=== PATIENT | male | born 1970 | race Caucasian/White ===

== ENCOUNTER → 2019-09-08 10:04 | Outpatient (BNVA) | payer MEDICARE, SELFPAY | PROVIDERS: Family Provider Internal Medicine; PCP Internal Medicine; Visit Provider Nurse Practitioner | DX: F33.1 Major depressive disorder, recurrent, moderate (principal); F41.1 Generalized anxiety disorder | CPT/HCPCS: 99213 ==

== ENCOUNTER → 2019-10-26 11:10 | Outpatient (BNVA) | payer MEDICARE, SELFPAY | PROVIDERS: Family Provider Internal Medicine; PCP Internal Medicine; Visit Provider Nurse Practitioner | DX: F41.1 Generalized anxiety disorder (principal); F33.1 Major depressive disorder, recurrent, moderate | CPT/HCPCS: 99214 ==

== ENCOUNTER 2019-11-09 13:32 | Outpatient (CLI) | payer MEDICARE, SELFPAY ==
[2019-11-09 14:14] LABS: Basophils # 0.1 10^3/uL (0.0-0.1); Basophils % 0.9 %; Eosinophils # 0.1 10^3/uL (0.0-0.8); Eosinophils % 1.8 %; Hematocrit 48.2 % (42.0-52.0); Hemoglobin 14.8 g/dL (11.7-16.6); Lymphocytes % 15.6 %; Mean Corpuscular HGB Conc 30.7 g/dL (30.0-36.0); Mean Corpuscular Hemoglobin 27.7 pg (28.0-34.0); Mean Corpuscular Volume 90.3 fL (80-94); Mean Platelet Volume 10.4 fL (7.4-10.4); Monocytes # 0.6 10^3/uL (0.2-0.9); Monocytes % 8.7 %; Neutrophils # 4.8 10^3/uL (1.8-7.7); Neutrophils % 72.4 %; Nucleated Red Blood Cells % 0 %; Platelet Count 537 10^3/cmm (130-400); Red Blood Count 5.34 10^6/uL (4.1-5.3); Red Cell Distribution Width 17.1 % (12.1-15.1); White Blood Count 6.7 10^3/uL (4.0-10.0)
--- NOTE | 2019-11-09 15:32 | ONC FU_ITS ---
Dr. Krause follow up note Patient: Bijan Eagle Unit #: [id number]: 1970 Dicatated By: Clif Krause M.D.Date of Visit:Nov 09, 2019 Onc Med Follow-up/Prog Note History of Present Illness: This is a 49 year old man with an extensive history of intractable chronic lower back pain, requiring multiple surgery including thoracic spinal cord stimulator implantation and laminectomy on 10/09/14 for spinal stenosis. The patient has chronic long-term opiate use. He also has a history of testosterone deficiency in the 2010. The patient suffers from depression. On routine laboratory analysis from 04/2415 his laboratory analysis revealed platelets of 654,000, and a repeat one week later on 05/09/15 increased to 717,000. He had adequate WBC and hemoglobin levels. His TSH measured 0.48 testosterone 218. The patient was first seen on 06/07/2015. Repeat laboratory analysis remained elevated platelets at 649. Further workup failed to find any evidence of reactive thrombocytosis. LDH 152, ESR 4, ferritin 16, but iron saturation 32%. He denied history of smoking. He had mild splenomegaly by CT imaging in June 2015. He denies history of bleeding, except prolonged bleeding with extensive mandibular surgery. He has uncomplicated molar tooth removal later on. He has no recent bleeding. No history of thrombosis. Bone marrow biopsy in June 2015 revealed hypercellular bone marrow at 90-100% cellularity, with significant megakaryocyte hyperplasia but also with significant dyspoiesis. About 5% of red cell precursors had dyspoiesis as well. Granulocytes were mature and normal in numbers. Flow cytometry and FISH panel for MDS unrevealing. Conventional cytogenetics unrevealing. Reticulin stain not increased. Absent iron storage was noted. Repeat iron studies with iron saturation 12%, ferritin 19. Further clonal analysis with BCR ABL, ej 2, ej 2 exon 12, MPL were completely unrevealing. Overlap of MDS/MPD was suspected. He began on oral iron supplementation, but despite of normalized iron panel, he had not developed erythrocytosis. Pure MPD with polycythemia rubra vera or essential thrombocythemia was felt to be unlikely.On hydroxyurea 500 mg 5 days a week Increased to 500 mg by mouth daily on 11/09/2019 And still taking testosterone supplements 1 mL every 3 weeks as per his PMDs recommendation Came for follow-up, denies any specific complaints, no fever or chills no nausea or vomiting no diarrhea constipation tolerating hydroxyurea 5 days a week well and still on testosterone supplements, managed by PMD Denies any headaches, blurred vision or double vision, Medications: Aspirin 1 (81 mg) Tablet, enteric coated Oral daily, BuPROPion HCl ER (XL) 1 (450 mg) Tablet SR 24 HR Oral daily, Furosemide 1 (40 mg) Tablet Oral daily, Hydrocodone-Acetaminophen 1 Tablet (of 10-325 mg) Oral four times a day PRN, Hydroxyurea 1 Tablet (of 500 mg) Oral daily, Lyrica 2 Capsule (of 200 mg) Oral b.i.d., Methadone HCl 2 Tablet (of 10 mg) Oral t.i.d., MiraLax Powder Oral PRN, Omeprazole 1 (20 mg) Capsule Delayed Release Oral daily, PARoxetine HCl 1 Tablet (of 20 mg) Oral daily, Potassium Chloride ER 1 (20 meq) Tablet, controlled release Oral daily, SEROquel 1 Tablet (of 50 mg) Oral daily, Zolpidem Tartrate 1 Tablet (of 10 mg) Oral at bedtime Allergies: Citalopram Hydrobromide and Sertraline HCl. Review of Systems: Constitutional - Appetite is good and weight is stable. No fever, chills, hot flashes, or night sweats. Energy level is good, ENMT - No sinus congestion/drainage. No mouth sores. No sore throat or difficulty swallowing, Hematologic/Lymphatic - No abnormal bruising or bleeding, Respiratory - Occasional shortness of breath. No cough. No pleuritic pain or hemoptysis, Cardiovascular - No angina pain. No palpitations, Gastrointestinal - No nausea or vomiting. No heartburn or acid reflux. No diarrhea or constipation. No blood in the stool or black stools, Genitourinary (M) - No dysuria or hematuria. No urinary frequency. No urgency or incontinence, Musculoskeletal - No joint or bone pain, Neurologic - No headache or dizziness. No numbness/paresthesias or other focal neurologic symptoms, Psychiatric - No anxiety or depression. No insomnia. Vital Signs: Performed on Nov 09, 2019 14:57 Height - 70.00 in Weight - 213.6 lbs (LOW) BSA - 2.15 sq.m BMI - 30.65 (HIGH) Temperature - 98.6 F Pulse - 93 /min Respiration - 16 /min BP - 154/101 mm(hg) (HIGH) O2 Sat - 97 % Pain - 6 Performance Status: 0 - Fully active, able to carry on all predisease activities without restrictions. (ECOG) Physical Examination: ENMT - No oral exudates, ulcers, masses, thrush or mucositis. Oropharynx clear. Tongue normal, Hematologic/Lymphatic - No petechiae or purpura. No tender or palpable lymph nodes in the cervical, supraclavicular, axillary or inguinal area, Respiratory - Lungs are clear to auscultation without rhonchi or wheezing, Cardiovascular - Regular rate and rhythm of heart, Abdomen - Non-tender, non-distended, Good bowel sounds. No guarding or rebound tenderness. No pulsatile masses, Extremities - no edema. Lab/Imaging: Test performed on Aug 17, 2019 14:36 WBC 6.5 10 3/uL RBC 5.14 10 6/uL HGB 14.5 g/dL HCT 46.1 % MCV 89.7 fl MCH 28.2 pg MCHC 31.5 g/dl RDW 17.2 % Platelet Count 535 10 3/cmm MPV 10.0 fl Neutrophils 4.8 10 3/uL Lymphocytes 1.0 10 3/uL Monocytes 0.6 10 3/uL Eosinophils 0.1 10 3/uL Basophils 0.0 10 3/uL Neutrophil % 73.8 % Lymphocyte % 15.6 % Monocyte % 8.4 % Eosinophil % 1.2 % Basophils % 0.5 % Impression: This is a 49 year old man was found to have persistent thrombocytosis and mild splenomegaly. 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 Essential thrombocythemia is not likely, because of present dyspoiesis. Polycythemia rubra was felt to be unlikely because he had no erythrocytosis despite of correction of iron deficiency. The patient has no history of thrombosis or bleeding. He has underlying testosterone deficiency, depression, severe chronic lower back pain requiring spinal cord stimulator implantation and back surgeries. .Polycythemia probably due to testosterone supplement, or underlying MPD , workup done in the past for myeloproliferative disorder because of thrombocytosis was inconclusive Bone marrow done on 07/16/2017 showed 100% cellularity with significant megakaryocyte proliferation and dyspoiesis. RBC precursors with some dyspoiesis noted including bi nucleated precursors and some nuclear/cytoplasmic dyssynchrony. No abnormal increase in blast cells. Flow cytometry showed no monocytic B-cell or aberrant T-cell population detected. Bone marrow fish for MDS no MDS related abnormality noted Bone marrow fish CML panel BCR/ABL fusion not detected Bone marrow chromosomal analysis no abnormality seen Started on hydroxyurea 500 mg daily on 10/29/2017 for progressive thrombocytosis and persistent polycythemia.Good response to the treatment, hydroxyurea dose changed to 500 mg/ d by mouth 5 days / week on 11/16/2017, increased to 500 mg by mouth daily on 11/09/2019 Plan: Discussed with patient regarding his labs white blood count 6.7 hemoglobin 14.8 crit 48.2 platelets 537,000, Clinically, patient is doing well, tolerating hydroxyurea 500 mg daily 5 days a week well. His follow-up lab shows persistent mild thrombocytosis and polycythemia while white blood count is within normal range. At this point we will increase his hydroxyurea dose to 500 mg by mouth daily and return to clinic in one month with CBC, goal is to maintain hemoglobin/hematocrit around 45 and platelet counts below 400,000 while keeping white blood count in the normal range.. Signed By: Clif Krause M.D. <<Signature on File>>
== END 2019-11-09 13:33 | disposition home or self-care (01) ==
LOC: ONCMED 13:32
PROVIDERS: Family Provider Internal Medicine; PCP Internal Medicine; Visit Provider Internal Medicine Hematology & Oncology
DX: D75.1 Secondary polycythemia (principal); D47.3 Essential (hemorrhagic) thrombocythemia; G89.29 Other chronic pain; M54.5 Low back pain; R16.1 Splenomegaly, not elsewhere classified; F32.9 Major depressive disorder, single episode, unspecified; Z79.891 Long term (current) use of opiate analgesic; Z79.82 Long term (current) use of aspirin; Z79.899 Other long term (current) drug therapy; Z96.82 Presence of neurostimulator
CPT/HCPCS: 85025; 99214

== ENCOUNTER → 2019-11-16 09:24 | Outpatient (BNVA) | payer MEDICARE, SELFPAY | PROVIDERS: Family Provider Internal Medicine; PCP Internal Medicine; Visit Provider Nurse Practitioner | DX: M54.9 Dorsalgia, unspecified (principal); G47.00 Insomnia, unspecified; Z79.891 Long term (current) use of opiate analgesic | CPT/HCPCS: 99213 ==

== ENCOUNTER → 2019-11-28 11:12 | Outpatient (BNVA) | payer MEDICARE, SELFPAY | PROVIDERS: Family Provider Internal Medicine; PCP Internal Medicine; Visit Provider Nurse Practitioner | DX: F41.1 Generalized anxiety disorder (principal); F33.1 Major depressive disorder, recurrent, moderate | CPT/HCPCS: 99213 ==

== ENCOUNTER 2019-12-09 10:10 | Outpatient (CLI) | payer MEDICARE, SELFPAY ==
[2019-12-09 12:16] LABS: Basophils % 0.7 %; Eosinophils # 0.1 10^3/uL (0.0-0.8); Hematocrit 48.2 % (42.0-52.0); Hemoglobin 14.9 g/dL (11.7-16.6); Lymphocytes % 17.6 %; Mean Corpuscular HGB Conc 30.9 g/dL (30.0-36.0); Mean Corpuscular Hemoglobin 29.1 pg (28.0-34.0); Mean Corpuscular Volume 94.1 fL (80-94); Mean Platelet Volume 10.7 fL (7.4-10.4); Monocytes # 0.5 10^3/uL (0.2-0.9); Monocytes % 8.2 %; Neutrophils # 3.9 10^3/uL (1.8-7.7); Neutrophils % 71.1 %; Nucleated Red Blood Cells % 0 %; Platelet Count 472 10^3/cmm (130-400); Red Blood Count 5.12 10^6/uL (4.1-5.3); Red Cell Distribution Width 18.4 % (12.1-15.1); White Blood Count 5.5 10^3/uL (4.0-10.0)
== END 2019-12-09 10:11 | disposition home or self-care (01) ==
LOC: ONCMED 12:50
PROVIDERS: Family Provider Internal Medicine; PCP Internal Medicine; Visit Provider Internal Medicine Hematology & Oncology
DX: D47.3 Essential (hemorrhagic) thrombocythemia (principal)
CPT/HCPCS: 85025

== ENCOUNTER 2019-12-27 08:53 | Outpatient (RCR) | payer MEDICARE, SELFPAY ==
[2019-12-23 11:35] LABS: Basophils % 0.6 %; Eosinophils # 0.1 10^3/uL (0.0-0.8); Eosinophils % 2.6 %; Hematocrit 45.9 % (42.0-52.0); Hemoglobin 14.1 g/dL (11.7-16.6); Lymphocytes # 1.2 10^3/uL (0.8-4.8); Lymphocytes % 24.7 %; Mean Corpuscular HGB Conc 30.7 g/dL (30.0-36.0); Mean Corpuscular Hemoglobin 29.7 pg (28.0-34.0); Mean Corpuscular Volume 96.6 fL (80-94); Mean Platelet Volume 10.6 fL (7.4-10.4); Monocytes # 0.3 10^3/uL (0.2-0.9); Monocytes % 6.9 %; Neutrophils % 64.8 %; Nucleated Red Blood Cells % 0 %; Platelet Count 448 10^3/cmm (130-400); Red Blood Count 4.75 10^6/uL (4.1-5.3); Red Cell Distribution Width 18.9 % (12.1-15.1); White Blood Count 4.7 10^3/uL (4.0-10.0)
--- NOTE | 2019-12-26 17:27 | ONC FU_ITS ---
Dr. Krause follow up note Patient: Bijan Eagle Unit #: [id number]: [id number] Dicatated By: Clif Krause M.D.Date of Visit:Dec 26, 2019 Telehealth Progress Note The patient has been informed that the visit may not be secure and acknowledged the information. I have explained the option of participating in a telephone or video visit during the [facility]-[address] [place] [address] emergency to the patient. After being given an opportunity to ask questions about and discuss this type of visit, the patient verbally consented to proceeding with the telephone/video visit. the patient understands that this service replaces an office visit and they may be billed and /or responsible for any applicable copayments History of Present Illness: This is a 49 year old man with an extensive history of intractable chronic lower back pain, requiring multiple surgery including thoracic spinal cord stimulator implantation and laminectomy on 10/09/14 for spinal stenosis. The patient has chronic long-term opiate use. He also has a history of testosterone deficiency in the 2010. The patient suffers from depression. On routine laboratory analysis from 04/2415 his laboratory analysis revealed platelets of 654,000, and a repeat one week later on 05/09/15 increased to 717,000. He had adequate WBC and hemoglobin levels. His TSH measured 0.48 testosterone 218. The patient was first seen on 06/07/2015. Repeat laboratory analysis remained elevated platelets at 649. Further workup failed to find any evidence of reactive thrombocytosis. LDH 152, ESR 4, ferritin 16, but iron saturation 32%. He denied history of smoking. He had mild splenomegaly by CT imaging in June 2015. He denies history of bleeding, except prolonged bleeding with extensive mandibular surgery. He has uncomplicated molar tooth removal later on. He has no recent bleeding. No history of thrombosis. Bone marrow biopsy in June 2015 revealed hypercellular bone marrow at 90-100% cellularity, with significant megakaryocyte hyperplasia but also with significant dyspoiesis. About 5% of red cell precursors had dyspoiesis as well. Granulocytes were mature and normal in numbers. Flow cytometry and FISH panel for MDS unrevealing. Conventional cytogenetics unrevealing. Reticulin stain not increased. Absent iron storage was noted. Repeat iron studies with iron saturation 12%, ferritin 19. Further clonal analysis with BCR ABL, ej 2, ej 2 exon 12, MPL were completely unrevealing. Overlap of MDS/MPD was suspected. He began on oral iron supplementation, but despite of normalized iron panel, he had not developed erythrocytosis. Pure MPD with polycythemia rubra vera or essential thrombocythemia was felt to be unlikely.On hydroxyurea 500 mg 5 days a week Increased to 500 mg by mouth daily on 11/09/2019 And still taking testosterone supplements 1 mL every 3 weeks as per his PMDs recommendation Evaluated via telemedicine, Patient denies any specific complaints, no fever or chills, no nausea or vomiting, no headaches or blurred vision or double vision, tolerating phlebotomy well and also hydroxyurea. Medications: Aspirin 1 (81 mg) Tablet, enteric coated Oral daily, BuPROPion HCl ER (XL) 1 (450 mg) Tablet SR 24 HR Oral daily, Furosemide 1 (40 mg) Tablet Oral daily, Hydrocodone-Acetaminophen 1 Tablet (of 10-325 mg) Oral four times a day PRN, Hydroxyurea 1 Tablet (of 500 mg) Oral daily, Lyrica 2 Capsule (of 200 mg) Oral b.i.d., Methadone HCl 2 Tablet (of 10 mg) Oral t.i.d., MiraLax Powder Oral PRN, Omeprazole 1 (20 mg) Capsule Delayed Release Oral daily, PARoxetine HCl 1 Tablet (of 20 mg) Oral daily, Potassium Chloride ER 1 (20 meq) Tablet, controlled release Oral daily, SEROquel 1 Tablet (of 50 mg) Oral daily, Zolpidem Tartrate 1 Tablet (of 10 mg) Oral at bedtime Allergies: Citalopram Hydrobromide and Sertraline HCl. Review of Systems: Review of Systems is not available for this patient. Vital Signs: Vitals are not available for this patient. Performance Status: 0 - Fully active, able to carry on all predisease activities without restrictions. (ECOG) Physical Examination: ENMT - denies mouth sores, Respiratory - denies shortness of breath or wheezing, Cardiovascular - denies palpitation or tachycardia, Abdomen - denies abdominal pain or fullness, Extremities - denies lower extremity edema or rash. Lab/Imaging: Test performed on Dec 09, 2019 10:10 WBC 5.5 10 3/uL RBC 5.12 10 6/uL HGB 14.9 g/dL HCT 48.2 % MCV 94.1 fL MCH 29.1 pg MCHC 30.9 g/dL RDW 18.4 % Platelet Count 472 10 3/cmm MPV 10.7 fL Neutrophils 3.9 10 3/uL Lymphocytes 1.0 10 3/uL Monocytes 0.5 10 3/uL Eosinophils 0.1 10 3/uL Basophils 0.0 10 3/uL Neutrophil % 71.1 % Lymphocyte % 17.6 % Monocyte % 8.2 % Eosinophil % 2.0 % Basophils % 0.7 % Impression: This is a 49 year old man was found to have persistent thrombocytosis and mild splenomegaly. 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 Essential thrombocythemia is not likely, because of present dyspoiesis. Polycythemia rubra was felt to be unlikely because he had no erythrocytosis despite of correction of iron deficiency. The patient has no history of thrombosis or bleeding. He has underlying testosterone deficiency, depression, severe chronic lower back pain requiring spinal cord stimulator implantation and back surgeries. .Polycythemia probably due to testosterone supplement, or underlying MPD , workup done in the past for myeloproliferative disorder because of thrombocytosis was inconclusive Bone marrow done on 07/16/2017 showed 100% cellularity with significant megakaryocyte proliferation and dyspoiesis. RBC precursors with some dyspoiesis noted including bi nucleated precursors and some nuclear/cytoplasmic dyssynchrony. No abnormal increase in blast cells. Flow cytometry showed no monocytic B-cell or aberrant T-cell population detected. Bone marrow fish for MDS no MDS related abnormality noted Bone marrow fish CML panel BCR/ABL fusion not detected Bone marrow chromosomal analysis no abnormality seen Started on hydroxyurea 500 mg daily on 10/29/2017 for progressive thrombocytosis and persistent polycythemia.Good response to the treatment, hydroxyurea dose changed to 500 mg/ d by mouth 5 days / week on 11/16/2017, increased to 500 mg by mouth daily on 11/09/2019 Plan: Discussed with patient regarding his labs white blood count 4.7 hemoglobin 14.1 crit 45.9 platelets 448,000 Clinically, patient is doing well, tolerating hydroxyurea well and also phlebotomy on as-needed basis. His hematocrit was 45, and today's lab shows 45.9, we'll proceed with phlebotomy in the morning and then check a CBC in one month. In the meantime we'll continue with hydroxyurea 500 mg by mouth daily Signed By: Clif Krause M.D. <<Signature on File>>
[2019-12-27] MEDS: sodium chloride 0.9% 250 ML 999 ML IV (13:50)
== END 2020-01-05 23:59 | disposition home or self-care (01) ==
LOC: ONCMED 08:53
PROVIDERS: Internal Medicine Hematology & Oncology; Family Provider Internal Medicine; PCP Internal Medicine; Visit Provider Internal Medicine Medical Oncology
DX: D45 Polycythemia vera (principal); D47.3 Essential (hemorrhagic) thrombocythemia; D46.9 Myelodysplastic syndrome, unspecified; E61.1 Iron deficiency; E03.9 Hypothyroidism, unspecified
CPT/HCPCS: 36415; 85025; 99195; J7050

== ENCOUNTER → 2020-01-13 08:39 | Outpatient (BNVA) | payer MEDICARE, SELFPAY | PROVIDERS: Family Provider Internal Medicine; PCP Internal Medicine; Visit Provider Nurse Practitioner | DX: M54.5 Low back pain (principal); G47.00 Insomnia, unspecified; Z96.89 Presence of other specified functional implants; Z79.891 Long term (current) use of opiate analgesic | CPT/HCPCS: 99213 ==

== ENCOUNTER 2020-02-01 06:41 | Outpatient (RCR) | payer MEDICARE, SELFPAY ==
[2020-01-31 10:30] LABS: Basophils % 0.7 %; Eosinophils # 0.1 10^3/uL (0.0-0.8); Eosinophils % 1.5 %; Hematocrit 44.1 % (42.0-52.0); Hemoglobin 13.3 g/dL (11.7-16.6); Lymphocytes % 19.2 %; Mean Corpuscular HGB Conc 30.2 g/dL (30.0-36.0); Mean Corpuscular Hemoglobin 28.7 pg (28.0-34.0); Mean Corpuscular Volume 95.2 fL (80-94); Monocytes # 0.5 10^3/uL (0.2-0.9); Monocytes % 9.7 %; Neutrophils # 3.7 10^3/uL (1.8-7.7); Neutrophils % 68.5 %; Nucleated Red Blood Cells % 0.4 %; Platelet Count 517 10^3/cmm (130-400); Red Blood Count 4.63 10^6/uL (4.1-5.3); Red Cell Distribution Width 18.5 % (12.1-15.1); White Blood Count 5.4 10^3/uL (4.0-10.0)
--- NOTE | 2020-02-03 13:50 | ONC FU_ITS ---
Dr. Krause follow up note Patient: Bijan Eagle Unit #: [id number]: 1970 Dicatated By: Clif Krause M.D.Date of Visit:February 01, 2020 Onc Med Follow-up/Prog Note History of Present Illness: This is a 49 year old man with an extensive history of intractable chronic lower back pain, requiring multiple surgery including thoracic spinal cord stimulator implantation and laminectomy on 10/09/14 for spinal stenosis. The patient has chronic long-term opiate use. He also has a history of testosterone deficiency in the 2010. The patient suffers from depression. On routine laboratory analysis from 04/2415 his laboratory analysis revealed platelets of 654,000, and a repeat one week later on 05/09/15 increased to 717,000. He had adequate WBC and hemoglobin levels. His TSH measured 0.48 testosterone 218. The patient was first seen on 06/07/2015. Repeat laboratory analysis remained elevated platelets at 649. Further workup failed to find any evidence of reactive thrombocytosis. LDH 152, ESR 4, ferritin 16, but iron saturation 32%. He denied history of smoking. He had mild splenomegaly by CT imaging in June 2015. He denies history of bleeding, except prolonged bleeding with extensive mandibular surgery. He has uncomplicated molar tooth removal later on. He has no recent bleeding. No history of thrombosis. Bone marrow biopsy in June 2015 revealed hypercellular bone marrow at 90-100% cellularity, with significant megakaryocyte hyperplasia but also with significant dyspoiesis. About 5% of red cell precursors had dyspoiesis as well. Granulocytes were mature and normal in numbers. Flow cytometry and FISH panel for MDS unrevealing. Conventional cytogenetics unrevealing. Reticulin stain not increased. Absent iron storage was noted. Repeat iron studies with iron saturation 12%, ferritin 19. Further clonal analysis with BCR ABL, ej 2, ej 2 exon 12, MPL were completely unrevealing. Overlap of MDS/MPD was suspected. He began on oral iron supplementation, but despite of normalized iron panel, he had not developed erythrocytosis. Pure MPD with polycythemia rubra vera or essential thrombocythemia was felt to be unlikely.On hydroxyurea 500 mg 5 days a week Increased to 500 mg by mouth daily on 11/09/2019 And still taking testosterone supplements 1 mL every 3 weeks as per his PMDs recommendation Came for follow-up, denies any specific complaints, no fever or chills, no nausea or vomiting, no diarrhea constipation, no headaches or blurred vision or double vision, patient still using testosterone supplements. Medications: Aspirin 1 (81 mg) Tablet, enteric coated Oral daily, BuPROPion HCl ER (XL) 1 (450 mg) Tablet SR 24 HR Oral daily, Furosemide 1 (40 mg) Tablet Oral daily, Hydrocodone-Acetaminophen 1 Tablet (of 10-325 mg) Oral four times a day PRN, Hydroxyurea 1 Tablet (of 500 mg) Oral daily, Lyrica 2 Capsule (of 200 mg) Oral b.i.d., Methadone HCl 2 Tablet (of 10 mg) Oral t.i.d., MiraLax Powder Oral PRN, Omeprazole 1 (20 mg) Capsule Delayed Release Oral daily, PARoxetine HCl 1 Tablet (of 20 mg) Oral daily, Potassium Chloride ER 1 (20 meq) Tablet, controlled release Oral daily, SEROquel 1 Tablet (of 50 mg) Oral daily, Zolpidem Tartrate 1 Tablet (of 10 mg) Oral at bedtime Allergies: Citalopram Hydrobromide and Sertraline HCl. Review of Systems: Review of Systems is not available for this patient. Vital Signs: Vitals are not available for this patient. Performance Status: 0 - Fully active, able to carry on all predisease activities without restrictions. (ECOG) Physical Examination: ENMT - no mouth sores, no thrush, no jaundice, Respiratory - Lungs are clear, Cardiovascular - Regular rate and rhythm of heart, Abdomen - bowel sounds present, soft, Extremities - no visible edema or rash. Lab/Imaging: Test performed on Dec 23, 2019 08:00 WBC 4.7 10 3/uL RBC 4.75 10 6/uL HGB 14.1 g/dL HCT 45.9 % MCV 96.6 fL MCH 29.7 pg MCHC 30.7 g/dL RDW 18.9 % Platelet Count 448 10 3/cmm MPV 10.6 fL Neutrophils 3.0 10 3/uL Lymphocytes 1.2 10 3/uL Monocytes 0.3 10 3/uL Eosinophils 0.1 10 3/uL Basophils 0.0 10 3/uL Neutrophil % 64.8 % Lymphocyte % 24.7 % Monocyte % 6.9 % Eosinophil % 2.6 % Basophils % 0.6 % Impression: This is a 49 year old man was found to have persistent thrombocytosis and mild splenomegaly. 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 Essential thrombocythemia is not likely, because of present dyspoiesis. Polycythemia rubra was felt to be unlikely because he had no erythrocytosis despite of correction of iron deficiency. The patient has no history of thrombosis or bleeding. He has underlying testosterone deficiency, depression, severe chronic lower back pain requiring spinal cord stimulator implantation and back surgeries. .Polycythemia probably due to testosterone supplement, or underlying MPD , workup done in the past for myeloproliferative disorder because of thrombocytosis was inconclusive Bone marrow done on 07/16/2017 showed 100% cellularity with significant megakaryocyte proliferation and dyspoiesis. RBC precursors with some dyspoiesis noted including bi nucleated precursors and some nuclear/cytoplasmic dyssynchrony. No abnormal increase in blast cells. Flow cytometry showed no monocytic B-cell or aberrant T-cell population detected. Bone marrow fish for MDS no MDS related abnormality noted Bone marrow fish CML panel BCR/ABL fusion not detected Bone marrow chromosomal analysis no abnormality seen Started on hydroxyurea 500 mg daily on 10/29/2017 for progressive thrombocytosis and persistent polycythemia.Good response to the treatment, hydroxyurea dose changed to 500 mg/ d by mouth 5 days / week on 11/16/2017, increased to 500 mg by mouth daily on 11/09/2019 Plan: Discussed with patient regarding his labs white blood count 5.4 hemoglobin 13.3 crit 44.1 platelets 517,000 Clinically, patient is doing well, now being treated with hydroxyurea, his follow-up lab shows hematocrit in desirable range, will continue with same dose of hydroxyurea her to clinic in one month with CBC Signed By: Clif Krause M.D. <<Signature on File>>
== END 2020-02-05 23:59 | disposition home or self-care (01) ==
LOC: ONCMED 06:41
PROVIDERS: Internal Medicine Medical Oncology; PCP Internal Medicine; Visit Provider Internal Medicine Hematology & Oncology
DX: D47.3 Essential (hemorrhagic) thrombocythemia (principal); D75.1 Secondary polycythemia; D46.9 Myelodysplastic syndrome, unspecified; E29.1 Testicular hypofunction; F32.9 Major depressive disorder, single episode, unspecified; M54.5 Low back pain; Z96.82 Presence of neurostimulator; Z79.899 Other long term (current) drug therapy
CPT/HCPCS: 36415; 85025; 99213; G0463

== ENCOUNTER 2020-02-15 15:29 | Outpatient (CLI) | payer MEDICARE, SELFPAY ==
[2020-02-15 16:28] LABS: Chol HDL Ratio 4.86 mg/dL (1.0-5.00); Cholesterol 141 mg/dL (0-200); HDL Cholesterol 29 mg/dL (60-100); LDL Cholesterol Calculated 84 mg/dL (50-129); Triglycerides 140 mg/dL (0-150)
[2020-02-15 19:20] LABS: Estmated Average Glucose 108; Hemoglobin A1C 5.4 % (4.0-6.0)
== END 2020-02-15 15:30 | disposition home or self-care (01) ==
LOC: LAB 15:34
PROVIDERS: PCP Internal Medicine; Visit Provider Nurse Practitioner
DX: F33.1 Major depressive disorder, recurrent, moderate (principal)
CPT/HCPCS: 80061; 83036

== ENCOUNTER 2020-02-29 06:56 | Outpatient (RCR) | payer MEDICARE, SELFPAY ==
[2020-02-29 09:27] LABS: Basophils % 0.7 %; Eosinophils # 0.1 10^3/uL (0.0-0.8); Eosinophils % 1.4 %; Hematocrit 43.9 % (42.0-52.0); Hemoglobin 13.6 g/dL (11.7-16.6); Lymphocytes # 1.2 10^3/uL (0.8-4.8); Lymphocytes % 19.8 %; Mean Corpuscular Hemoglobin 29.4 pg (28.0-34.0); Mean Corpuscular Volume 94.8 fL (80-94); Mean Platelet Volume 9.8 fL (7.4-10.4); Monocytes # 0.7 10^3/uL (0.2-0.9); Monocytes % 11.4 %; Neutrophils # 3.9 10^3/uL (1.8-7.7); Neutrophils % 66.4 %; Nucleated Red Blood Cells % 0 %; Platelet Count 498 10^3/cmm (130-400); Red Blood Count 4.63 10^6/uL (4.1-5.3); Red Cell Distribution Width 17.2 % (12.1-15.1); White Blood Count 5.9 10^3/uL (4.0-10.0)
--- NOTE | 2020-02-29 16:47 | ONC FU_ITS ---
Dr. Krause follow up note Patient: Bijan Eagle Unit #: [id number]: 1970 Dicatated By: Clif Krause M.D.Date of Visit:Feb 29, 2020 Telehealth Progress Note The patient has been informed that the visit may not be secure and acknowledged the information. I have explained the option of participating in a telephone or video visit during the [facility] [place] [address] emergency to the patient. After being given an opportunity to ask questions about and discuss this type of visit, the patient verbally consented to proceeding with the telephone/video visit. the patient understands that this service replaces an office visit and they may be billed and /or responsible for any applicable copayments History of Present Illness: This is a 50 year old man with an extensive history of intractable chronic lower back pain, requiring multiple surgery including thoracic spinal cord stimulator implantation and laminectomy on 10/09/14 for spinal stenosis. The patient has chronic long-term opiate use. He also has a history of testosterone deficiency in the 2010. The patient suffers from depression. On routine laboratory analysis from 04/2415 his laboratory analysis revealed platelets of 654,000, and a repeat one week later on 05/09/15 increased to 717,000. He had adequate WBC and hemoglobin levels. His TSH measured 0.48 testosterone 218. The patient was first seen on 06/07/2015. Repeat laboratory analysis remained elevated platelets at 649. Further workup failed to find any evidence of reactive thrombocytosis. LDH 152, ESR 4, ferritin 16, but iron saturation 32%. He denied history of smoking. He had mild splenomegaly by CT imaging in June 2015. He denies history of bleeding, except prolonged bleeding with extensive mandibular surgery. He has uncomplicated molar tooth removal later on. He has no recent bleeding. No history of thrombosis. Bone marrow biopsy in June 2015 revealed hypercellular bone marrow at 90-100% cellularity, with significant megakaryocyte hyperplasia but also with significant dyspoiesis. About 5% of red cell precursors had dyspoiesis as well. Granulocytes were mature and normal in numbers. Flow cytometry and FISH panel for MDS unrevealing. Conventional cytogenetics unrevealing. Reticulin stain not increased. Absent iron storage was noted. Repeat iron studies with iron saturation 12%, ferritin 19. Further clonal analysis with BCR ABL, ej 2, ej 2 exon 12, MPL were completely unrevealing. Overlap of MDS/MPD was suspected. He began on oral iron supplementation, but despite of normalized iron panel, he had not developed erythrocytosis. Pure MPD with polycythemia rubra vera or essential thrombocythemia was felt to be unlikely.On hydroxyurea 500 mg 5 days a week Increased to 500 mg by mouth daily on 11/09/2019 And still taking testosterone supplements 1 mL every 3 weeks as per his PMDs recommendation Evaluated via telephone, patient denies any specific complaints, no headaches, no blurred vision or double vision, no chest pain or shortness of breath, no fever or chills, no nausea or vomiting, tolerating hydroxyurea well. Medications: Aspirin 1 (81 mg) Tablet, enteric coated Oral daily, BuPROPion HCl ER (XL) 1 (450 mg) Tablet SR 24 HR Oral daily, Furosemide 1 (40 mg) Tablet Oral daily, Hydrocodone-Acetaminophen 1 Tablet (of 10-325 mg) Oral four times a day PRN, Hydroxyurea 1 Tablet (of 500 mg) Oral daily, Lyrica 2 Capsule (of 200 mg) Oral b.i.d., Methadone HCl 2 Tablet (of 10 mg) Oral t.i.d., MiraLax Powder Oral PRN, Omeprazole 1 (20 mg) Capsule Delayed Release Oral daily, PARoxetine HCl 1 Tablet (of 20 mg) Oral daily, Potassium Chloride ER 1 (20 meq) Tablet, controlled release Oral daily, SEROquel 1 Tablet (of 50 mg) Oral daily, Zolpidem Tartrate 1 Tablet (of 10 mg) Oral at bedtime Allergies: Citalopram Hydrobromide and Sertraline HCl. Review of Systems: Review of Systems is not available for this patient. Vital Signs: Vitals are not available for this patient. Performance Status: 0 - Fully active, able to carry on all predisease activities without restrictions. (ECOG) Physical Examination: ENMT - Denies any mouth sores or thrush or jaundice, Respiratory - Denies any shortness of breath or wheezing, Cardiovascular - Denies any tachycardia or palpitation, Abdomen - Denies any abdominal pain or fullness, Extremities - Denies any edema or rash. Lab/Imaging: Test performed on January 31, 2020 09:08 WBC 5.4 10 3/uL RBC 4.63 10 6/uL HGB 13.3 g/dL HCT 44.1 % MCV 95.2 fL MCH 28.7 pg MCHC 30.2 g/dL RDW 18.5 % Platelet Count 517 10 3/cmm MPV 10.0 fL Neutrophils 3.7 10 3/uL Lymphocytes 1.0 10 3/uL Monocytes 0.5 10 3/uL Eosinophils 0.1 10 3/uL Basophils 0.0 10 3/uL Neutrophil % 68.5 % Lymphocyte % 19.2 % Monocyte % 9.7 % Eosinophil % 1.5 % Basophils % 0.7 % Impression: This is a 49 year old man was found to have persistent thrombocytosis and mild splenomegaly. 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 Essential thrombocythemia is not likely, because of present dyspoiesis. Polycythemia rubra was felt to be unlikely because he had no erythrocytosis despite of correction of iron deficiency. The patient has no history of thrombosis or bleeding. He has underlying testosterone deficiency, depression, severe chronic lower back pain requiring spinal cord stimulator implantation and back surgeries. .Polycythemia probably due to testosterone supplement, or underlying MPD , workup done in the past for myeloproliferative disorder because of thrombocytosis was inconclusive Bone marrow done on 07/16/2017 showed 100% cellularity with significant megakaryocyte proliferation and dyspoiesis. RBC precursors with some dyspoiesis noted including bi nucleated precursors and some nuclear/cytoplasmic dyssynchrony. No abnormal increase in blast cells. Flow cytometry showed no monocytic B-cell or aberrant T-cell population detected. Bone marrow fish for MDS no MDS related abnormality noted Bone marrow fish CML panel BCR/ABL fusion not detected Bone marrow chromosomal analysis no abnormality seen Started on hydroxyurea 500 mg daily on 10/29/2017 for progressive thrombocytosis and persistent polycythemia.Good response to the treatment, hydroxyurea dose changed to 500 mg/ d by mouth 5 days / week on 11/16/2017, increased to 500 mg by mouth daily on 11/09/2019 Plan: Discussed with patient regarding his labs white blood count 5.9 hemoglobin 13.6 g hematocrit 43.9 platelets 498,000 Clinically, patient is doing well with no new signs symptoms, his follow-up labs showed hematocrit in a desirable range e.g. less than 45, tolerating hydroxyurea 500 mg p.o. daily well. We will continue with same, patient was advised to maintain good hydration and continue take aspirin and he will return to clinic in 1 month with CBCTime spent on telephone about 3 minutes Signed By: Clif Krause M.D. <<Signature on File>>
== END 2020-03-06 23:59 | disposition home or self-care (01) ==
LOC: ONCMED 06:56
PROVIDERS: PCP Internal Medicine; Visit Provider Internal Medicine Hematology & Oncology
DX: C34.31 Malignant neoplasm of lower lobe, right bronchus or lung (principal); R93.5 Abnormal findings on diagnostic imaging of other abdominal regions, including retroperitoneum; R11.2 Nausea with vomiting, unspecified; J44.9 Chronic obstructive pulmonary disease, unspecified; I10 Essential (primary) hypertension; E78.5 Hyperlipidemia, unspecified; I25.10 Atherosclerotic heart disease of native coronary artery without angina pectoris; F41.8 Other specified anxiety disorders; Z85.51 Personal history of malignant neoplasm of bladder; Z87.448 Personal history of other diseases of urinary system; Z92.3 Personal history of irradiation; Z79.899 Other long term (current) drug therapy; I25.2 Old myocardial infarction
CPT/HCPCS: 36415; 85025

== ENCOUNTER → 2020-03-16 09:02 | Outpatient (BNVA) | payer MEDICARE, SELFPAY | PROVIDERS: Family Provider Internal Medicine; PCP Internal Medicine; Visit Provider Anesthesiology | DX: M54.42 Lumbago with sciatica, left side (principal); G47.00 Insomnia, unspecified; Z79.891 Long term (current) use of opiate analgesic | CPT/HCPCS: 99213; 99214 ==

== ENCOUNTER 2020-03-28 06:58 | Outpatient (RCR) | payer MEDICARE, SELFPAY ==
[2020-03-28 12:54] LABS: Basophils % 0.3 %; Eosinophils # 0.1 10^3/uL (0.0-0.8); Eosinophils % 1.2 %; Hematocrit 45.4 % (42.0-52.0); Hemoglobin 13.4 g/dL (11.7-16.6); Lymphocytes # 1.1 10^3/uL (0.8-4.8); Lymphocytes % 17.8 %; Mean Corpuscular HGB Conc 29.5 g/dL (30.0-36.0); Mean Corpuscular Hemoglobin 28.3 pg (28.0-34.0); Mean Platelet Volume 10.3 fL (7.4-10.4); Monocytes # 0.4 10^3/uL (0.2-0.9); Monocytes % 6.1 %; Neutrophils # 4.41 10^3/uL (1.8-7.7); Neutrophils % 74.3 %; Nucleated Red Blood Cells % 0.3 %; Platelet Count 511 10^3/cmm (130-400); Red Blood Count 4.73 10^6/uL (4.1-5.3); Red Cell Distribution Width 17.5 % (12.1-15.1); White Blood Count 5.9 10^3/uL (4.0-10.0)
--- NOTE | 2020-03-28 14:29 | ONC FU_ITS ---
Dr. Krause follow up note Patient: Bijan Eagle Unit #: [id number]: 1970 Dicatated By: Clif Krause M.D.Date of Visit:Mar 28, 2020 Onc Med Follow-up/Prog Note History of Present Illness: This is a 50 year old man with an extensive history of intractable chronic lower back pain, requiring multiple surgery including thoracic spinal cord stimulator implantation and laminectomy on 10/09/14 for spinal stenosis. The patient has chronic long-term opiate use. He also has a history of testosterone deficiency in the 2010. The patient suffers from depression. On routine laboratory analysis from 04/2415 his laboratory analysis revealed platelets of 654,000, and a repeat one week later on 05/09/15 increased to 717,000. He had adequate WBC and hemoglobin levels. His TSH measured 0.48 testosterone 218. The patient was first seen on 06/07/2015. Repeat laboratory analysis remained elevated platelets at 649. Further workup failed to find any evidence of reactive thrombocytosis. LDH 152, ESR 4, ferritin 16, but iron saturation 32%. He denied history of smoking. He had mild splenomegaly by CT imaging in June 2015. He denies history of bleeding, except prolonged bleeding with extensive mandibular surgery. He has uncomplicated molar tooth removal later on. He has no recent bleeding. No history of thrombosis. Bone marrow biopsy in June 2015 revealed hypercellular bone marrow at 90-100% cellularity, with significant megakaryocyte hyperplasia but also with significant dyspoiesis. About 5% of red cell precursors had dyspoiesis as well. Granulocytes were mature and normal in numbers. Flow cytometry and FISH panel for MDS unrevealing. Conventional cytogenetics unrevealing. Reticulin stain not increased. Absent iron storage was noted. Repeat iron studies with iron saturation 12%, ferritin 19. Further clonal analysis with BCR ABL, ej 2, ej 2 exon 12, MPL were completely unrevealing. Overlap of MDS/MPD was suspected. He began on oral iron supplementation, but despite of normalized iron panel, he had not developed erythrocytosis. Pure MPD with polycythemia rubra vera or essential thrombocythemia was felt to be unlikely.On hydroxyurea 500 mg 5 days a week Increased to 500 mg by mouth daily on 11/09/2019 And still taking testosterone supplements 1 mL every 3 weeks as per his PMDs recommendation Came for follow-up, denies any specific complaints, no fever chills, no nausea or vomiting, no diarrhea or constipation, no headaches blurred vision or double vision, tolerating hydroxyurea well And still taking testosterone supplements Medications: Aspirin 1 (81 mg) Tablet, enteric coated Oral daily, BuPROPion HCl ER (XL) 1 (450 mg) Tablet SR 24 HR Oral daily, Furosemide 1 (40 mg) Tablet Oral daily, Hydrocodone-Acetaminophen 1 Tablet (of 10-325 mg) Oral four times a day PRN, Hydroxyurea 1 Tablet (of 500 mg) Oral daily, Lyrica 2 Capsule (of 200 mg) Oral b.i.d., Methadone HCl 2 Tablet (of 10 mg) Oral t.i.d., MiraLax Powder Oral PRN, Omeprazole 1 (20 mg) Capsule Delayed Release Oral daily, PARoxetine HCl 1 Tablet (of 20 mg) Oral daily, Potassium Chloride ER 1 (20 meq) Tablet, controlled release Oral daily, SEROquel 1 Tablet (of 50 mg) Oral daily, Zolpidem Tartrate 1 Tablet (of 10 mg) Oral at bedtime Allergies: Citalopram Hydrobromide and Sertraline HCl. Review of Systems: Constitutional - Appetite is good and weight is stable. No fever, chills, hot flashes, or night sweats. Energy level is fair, ENMT - No sinus congestion/drainage. No mouth sores. No sore throat or difficulty swallowing, Hematologic/Lymphatic - Positive for easy bruising, Respiratory - Occasional shortness of breath. No cough. No pleuritic pain or hemoptysis, Cardiovascular - No angina pain. No palpitations, Gastrointestinal - No nausea or vomiting. No heartburn or acid reflux. No diarrhea or constipation. No blood in the stool or black stools, Genitourinary (M) - No dysuria or hematuria. No urinary frequency. No urgency or incontinence, Musculoskeletal - No joint or bone pain, Neurologic - No headache or dizziness. No numbness/paresthesias or other focal neurologic symptoms, Psychiatric - No anxiety or depression. No insomnia. Vital Signs: Performed on Mar 28, 2020 13:59 Height - 70.00 in Weight - 210.6 lbs (LOW) BSA - 2.13 sq.m BMI - 30.22 (HIGH) Temperature - 98.9 F (HIGH) Pulse - 76 /min Respiration - 20 /min BP - 155/97 mm(hg) (HIGH) O2 Sat - 100 % Pain - 0 Performance Status: 0 - Fully active, able to carry on all predisease activities without restrictions. (ECOG) Physical Examination: ENMT - No mouth sores, no thrush, no jaundice, Respiratory - Lungs are clear, Cardiovascular - Regular rate and rhythm of heart, Abdomen - Soft, bowel sounds present, Extremities - No visible edema. Lab/Imaging: Test performed on Feb 29, 2020 09:20 WBC 5.9 10 3/uL RBC 4.63 10 6/uL HGB 13.6 g/dL HCT 43.9 % MCV 94.8 fL MCH 29.4 pg MCHC 31.0 g/dL RDW 17.2 % Platelet Count 498 10 3/cmm MPV 9.8 fL Neutrophils 3.9 10 3/uL Lymphocytes 1.2 10 3/uL Monocytes 0.7 10 3/uL Eosinophils 0.1 10 3/uL Basophils 0.0 10 3/uL Neutrophil % 66.4 % Lymphocyte % 19.8 % Monocyte % 11.4 % Eosinophil % 1.4 % Basophils % 0.7 % NRBC % 0 % Impression: This is a 50 year old man was found to have persistent thrombocytosis and mild splenomegaly. 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 Essential thrombocythemia is not likely, because of present dyspoiesis. Polycythemia rubra was felt to be unlikely because he had no erythrocytosis despite of correction of iron deficiency. The patient has no history of thrombosis or bleeding. He has underlying testosterone deficiency, depression, severe chronic lower back pain requiring spinal cord stimulator implantation and back surgeries. .Polycythemia probably due to testosterone supplement, or underlying MPD , workup done in the past for myeloproliferative disorder because of thrombocytosis was inconclusive Bone marrow done on 07/16/2017 showed 100% cellularity with significant megakaryocyte proliferation and dyspoiesis. RBC precursors with some dyspoiesis noted including bi nucleated precursors and some nuclear/cytoplasmic dyssynchrony. No abnormal increase in blast cells. Flow cytometry showed no monocytic B-cell or aberrant T-cell population detected. Bone marrow fish for MDS no MDS related abnormality noted Bone marrow fish CML panel BCR/ABL fusion not detected Bone marrow chromosomal analysis no abnormality seen Started on hydroxyurea 500 mg daily on 10/29/2017 for progressive thrombocytosis and persistent polycythemia.Good response to the treatment, hydroxyurea dose changed to 500 mg/ d by mouth 5 days / week on 11/16/2017, increased to 500 mg by mouth daily on 11/09/2019 Plan: Discussed with patient regarding his labs white blood count 5.9 hemoglobin 13.4 hematocrit 45.4 platelets 511,000 Clinically, patient doing well with no new signs symptoms he is on hydroxyurea 500 mg p.o. daily and his follow-up labs shows CBC within normal range except mild thrombocytosis, will continue to monitor, discussed with patient as his initial extensive work-up was unremarkable for any primary bone marrow disorder and it was resumed polycythemia was most likely reactive and due to testosterone supplement. But also there was a impression that he may have overlap of MDS/MPD so was started on hydroxyurea 500 mg, which he takes on a daily basis. He is also on testosterone supplements. At this point we will continue to monitor and he will return to clinic in 2 months at that time we will check his CBC and also Ej 2 mutation and if it is an remarkable, then we may start tapering off his hydroxyurea. And may consider phlebotomy if his hematocrit is more than 55 or patient symptomatic then we will keep it around 50. Signed By: Clif Krause M.D. <<Signature on File>>
== END 2020-04-06 23:59 | disposition home or self-care (01) ==
LOC: ONCMED 06:58
PROVIDERS: PCP Internal Medicine; Visit Provider Internal Medicine Hematology & Oncology
DX: D47.3 Essential (hemorrhagic) thrombocythemia (principal); D75.1 Secondary polycythemia; Z79.899 Other long term (current) drug therapy
CPT/HCPCS: 85025; 99214

== ENCOUNTER → 2020-04-10 08:44 | Outpatient (BNVA) | payer MEDICARE, SELFPAY | PROVIDERS: PCP Internal Medicine; Visit Provider Nurse Practitioner | DX: F41.1 Generalized anxiety disorder (principal); F33.1 Major depressive disorder, recurrent, moderate | CPT/HCPCS: 99213 ==

== ENCOUNTER → 2020-05-18 08:40 | Outpatient (BNVA) | payer MEDICARE, SELFPAY | PROVIDERS: Family Provider Internal Medicine; PCP Internal Medicine; Visit Provider Anesthesiology | DX: M54.42 Lumbago with sciatica, left side (principal); G47.00 Insomnia, unspecified; Z96.89 Presence of other specified functional implants; Z79.891 Long term (current) use of opiate analgesic | CPT/HCPCS: 99213; 99214 ==

== ENCOUNTER 2020-05-29 13:28 | Outpatient (CLI) | payer MEDICARE, SELFPAY ==
[2020-05-29 13:48] LABS: Basophils % 0.7 %; Eosinophils # 0.1 10^3/uL (0.0-0.8); Eosinophils % 1.2 %; Hematocrit 43.5 % (42.0-52.0); Hemoglobin 13.5 g/dL (11.7-16.6); Lymphocytes # 1.1 10^3/uL (0.8-4.8); Lymphocytes % 19.2 %; Mean Corpuscular Volume 93.5 fL (80-94); Mean Platelet Volume 10.1 fL (7.4-10.4); Monocytes # 0.5 10^3/uL (0.2-0.9); Monocytes % 8.8 %; Neutrophils # 4.11 10^3/uL (1.8-7.7); Neutrophils % 69.8 %; Nucleated Red Blood Cells % 0 %; Platelet Count 479 10^3/cmm (130-400); Red Blood Count 4.65 10^6/uL (4.1-5.3); Red Cell Distribution Width 17.4 % (12.1-15.1); White Blood Count 5.9 10^3/uL (4.0-10.0)
--- NOTE | 2020-05-29 17:07 | ONC FU_ITS ---
Dr. Krause follow up note Patient: Bijan Egale Unit #: [id number]: 1970 Dicatated By: Clif Krause M.D.Date of Visit:May 29, 2020 Onc Med Follow-up/Prog Note History of Present Illness: This is a 50 year old man with an extensive history of intractable chronic lower back pain, requiring multiple surgery including thoracic spinal cord stimulator implantation and laminectomy on 10/09/14 for spinal stenosis. The patient has chronic long-term opiate use. He also has a history of testosterone deficiency in the 2010. The patient suffers from depression. On routine laboratory analysis from 04/2415 his laboratory analysis revealed platelets of 654,000, and a repeat one week later on 05/09/15 increased to 717,000. He had adequate WBC and hemoglobin levels. His TSH measured 0.48 testosterone 218. The patient was first seen on 06/07/2015. Repeat laboratory analysis remained elevated platelets at 649. Further workup failed to find any evidence of reactive thrombocytosis. LDH 152, ESR 4, ferritin 16, but iron saturation 32%. He denied history of smoking. He had mild splenomegaly by CT imaging in June 2015. He denies history of bleeding, except prolonged bleeding with extensive mandibular surgery. He has uncomplicated molar tooth removal later on. He has no recent bleeding. No history of thrombosis. Bone marrow biopsy in June 2015 revealed hypercellular bone marrow at 90-100% cellularity, with significant megakaryocyte hyperplasia but also with significant dyspoiesis. About 5% of red cell precursors had dyspoiesis as well. Granulocytes were mature and normal in numbers. Flow cytometry and FISH panel for MDS unrevealing. Conventional cytogenetics unrevealing. Reticulin stain not increased. Absent iron storage was noted. Repeat iron studies with iron saturation 12%, ferritin 19. Further clonal analysis with BCR ABL, ej 2, ej 2 exon 12, MPL were completely unrevealing. Overlap of MDS/MPD was suspected. He began on oral iron supplementation, but despite of normalized iron panel, he had not developed erythrocytosis. Pure MPD with polycythemia rubra vera or essential thrombocythemia was felt to be unlikely.On hydroxyurea 500 mg 5 days a week Increased to 500 mg by mouth daily on 11/09/2019 And still taking testosterone supplements 1 mL every 3 weeks as per his PMDs recommendation Came for follow-up, denies any specific complaints, no fever chills, no nausea or vomiting, no diarrhea constipation, no headaches blurred vision or double vision, tolerating hydroxyurea well Medications: Aspirin 1 (81 mg) Tablet, enteric coated Oral daily, BuPROPion HCl ER (XL) 1 (450 mg) Tablet SR 24 HR Oral daily, Furosemide 1 (40 mg) Tablet Oral daily, Hydrocodone-Acetaminophen 1 Tablet (of 10-325 mg) Oral four times a day PRN, Hydroxyurea 1 Tablet (of 500 mg) Oral daily, Lyrica 2 Capsule (of 200 mg) Oral b.i.d., Methadone HCl 2 Tablet (of 10 mg) Oral t.i.d., MiraLax Powder Oral PRN, Omeprazole 1 (20 mg) Capsule Delayed Release Oral daily, PARoxetine HCl 1 Tablet (of 20 mg) Oral daily, Potassium Chloride ER 1 (20 meq) Tablet, controlled release Oral daily, SEROquel 1 Tablet (of 50 mg) Oral daily, Zolpidem Tartrate 1 Tablet (of 10 mg) Oral at bedtime Allergies: Citalopram Hydrobromide and Sertraline HCl. Review of Systems: Constitutional - Appetite is good and weight is stable. No fever, chills, hot flashes, or night sweats. Energy level is fair, ENMT - No sinus congestion/drainage. No mouth sores. No sore throat or difficulty swallowing, Hematologic/Lymphatic - Positive for easy bruising, Respiratory - Occasional shortness of breath. No cough. No pleuritic pain or hemoptysis, Cardiovascular - No angina pain. No palpitations, Gastrointestinal - No nausea or vomiting. No heartburn or acid reflux. No diarrhea or constipation. No blood in the stool or black stools, Genitourinary (M) - No dysuria or hematuria. No urinary frequency. No urgency or incontinence, Musculoskeletal - No joint or bone pain, Neurologic - No headache or dizziness. No numbness/paresthesias or other focal neurologic symptoms, Psychiatric - No anxiety or depression. No insomnia. Vital Signs: Performed on May 29, 2020 15:13 Height - 70.00 in Weight - 210.8 lbs (HIGH) BSA - 2.13 sq.m BMI - 30.25 (HIGH) Temperature - 97.9 F (LOW) Pulse - 99 /min Respiration - 22 /min BP - 156/82 mm(hg) (HIGH) O2 Sat - 97 % Pain - 7 Performance Status: 0 - Fully active, able to carry on all predisease activities without restrictions. (ECOG) Physical Examination: ENMT - No mouth sores, no thrush, no jaundice, Respiratory - Lungs are clear to auscultation, Cardiovascular - Regular rate and rhythm of heart, Abdomen - Soft, bowel sounds present, Extremities - No edema or rash. Lab/Imaging: Test performed on Mar 28, 2020 12:28 WBC 5.9 10 3/uL RBC 4.73 10 6/uL HGB 13.4 g/dL HCT 45.4 % MCV 96.0 fL MCH 28.3 pg MCHC 29.5 g/dL RDW 17.5 % Platelet Count 511 10 3/cmm MPV 10.3 fL Neutrophils 4.41 10 3/uL Lymphocytes 1.1 10 3/uL Monocytes 0.4 10 3/uL Eosinophils 0.1 10 3/uL Basophils 0.0 10 3/uL Neutrophil % 74.3 % Lymphocyte % 17.8 % Monocyte % 6.1 % Eosinophil % 1.2 % Basophils % 0.3 % NRBC % 0.3 % Impression: This is a 50 year old man was found to have persistent thrombocytosis and mild splenomegaly. 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 Essential thrombocythemia is not likely, because of present dyspoiesis. Polycythemia rubra was felt to be unlikely because he had no erythrocytosis despite of correction of iron deficiency. The patient has no history of thrombosis or bleeding. He has underlying testosterone deficiency, depression, severe chronic lower back pain requiring spinal cord stimulator implantation and back surgeries. .Polycythemia probably due to testosterone supplement, or underlying MPD , workup done in the past for myeloproliferative disorder because of thrombocytosis was inconclusive Bone marrow done on 07/16/2017 showed 100% cellularity with significant megakaryocyte proliferation and dyspoiesis. RBC precursors with some dyspoiesis noted including bi nucleated precursors and some nuclear/cytoplasmic dyssynchrony. No abnormal increase in blast cells. Flow cytometry showed no monocytic B-cell or aberrant T-cell population detected. Bone marrow fish for MDS no MDS related abnormality noted Bone marrow fish CML panel BCR/ABL fusion not detected Bone marrow chromosomal analysis no abnormality seen Started on hydroxyurea 500 mg daily on 10/29/2017 for progressive thrombocytosis and persistent polycythemia.Good response to the treatment, hydroxyurea dose changed to 500 mg/ d by mouth 5 days / week on 11/16/2017, increased to 500 mg by mouth daily on 11/09/2019 Plan: Discussed with patient regarding his labs white blood count 5.9 hemoglobin 13.5 crit 43.5 platelets 479,000 Clinically, patient is doing well with no new signs symptoms, tolerating hydroxyurea well. At this point will consider repeating Ej 2 mutation, if negative, we may consider tapering off hydroxyurea and monitor him as his polycythemia could be due to testosterone supplements.He will return to clinic in 1 month with CBC and Ej 2 mutation results Signed By: Clif Krause M.D. <<Signature on File>>
[2020-06-09 22:42] LABS: CALR Exon 9 Mutation DETECTED (NOT DETECTED); JAK2 V617 Block Specimen ID NG; JAK2 V617 Clinical Indication NG; JAK2 V617 Mutation NOT DETECTED (NOT DETECTED); JAK2 V617 Specimen Source NG
== END 2020-05-29 13:29 | disposition home or self-care (01) ==
LOC: ONCMED 13:33
PROVIDERS: PCP Internal Medicine; Visit Provider Internal Medicine Hematology & Oncology
DX: D47.3 Essential (hemorrhagic) thrombocythemia (principal); E61.1 Iron deficiency; E29.1 Testicular hypofunction; F33.41 Major depressive disorder, recurrent, in partial remission; G89.21 Chronic pain due to trauma; Z79.891 Long term (current) use of opiate analgesic
CPT/HCPCS: 36415; 85025; 99214

== ENCOUNTER 2020-06-22 06:45 | Outpatient (CLI) | payer MEDICARE, SELFPAY ==
[2020-06-22 11:00] LABS: Basophils % 0.6 %; Eosinophils # 0.1 10^3/uL (0.0-0.8); Eosinophils % 1.7 %; Hematocrit 40.7 % (42.0-52.0); Hemoglobin 12.7 g/dL (11.7-16.6); Lymphocytes # 0.7 10^3/uL (0.8-4.8); Lymphocytes % 19.9 %; Mean Corpuscular HGB Conc 31.2 g/dL (30.0-36.0); Mean Corpuscular Hemoglobin 29.7 pg (28.0-34.0); Mean Corpuscular Volume 95.1 fL (80-94); Mean Platelet Volume 9.8 fL (7.4-10.4); Monocytes # 0.3 10^3/uL (0.2-0.9); Monocytes % 8.9 %; Neutrophils # 2.38 10^3/uL (1.8-7.7); Neutrophils % 68.6 %; Nucleated Red Blood Cells % 0 %; Platelet Count 433 10^3/cmm (130-400); Red Blood Count 4.28 10^6/uL (4.1-5.3); White Blood Count 3.5 10^3/uL (4.0-10.0)
[2020-06-22 11:27] LABS: Alanine Aminotransferase 15 U/L (0-41); Albumin Level 3.9 g/dL (3.5-5.2); Alkaline Phosphatase 41 IU/L (40-130); Anion Gap 11.4 (5-19); Aspartate Amino Transferase 17 U/L (0-40); Blood Urea Nitrogen 15 mg/dL (6-20); Calcium 9.2 mg/dL (8.5-10.5); Carbon Dioxide 28 mmol/L (22-29); Chloride 106 mmol/L (98-107); Globulin 1.9 g/dL (1.3-4.6); Glomerular Filtration Rate 70.3 mL/min (90-130); Glucose 97 mg/dL (65-115); Osmolality Calculated 293 mOsm/kg (285-295); Potassium 4.4 mmol/L (3.5-5.1); Sodium 141 mmol/L (136-145); Total Bilirubin 0.4 mg/dL (0.15-1.2); Total Protein 5.8 g/dL (6.6-8.7)
== END 2020-06-22 06:46 | disposition home or self-care (01) ==
LOC: ONCMED 06:47
PROVIDERS: PCP Internal Medicine; Visit Provider Internal Medicine Medical Oncology
DX: D47.3 Essential (hemorrhagic) thrombocythemia (principal); D46.9 Myelodysplastic syndrome, unspecified; E61.1 Iron deficiency; E29.1 Testicular hypofunction; F33.41 Major depressive disorder, recurrent, in partial remission; G89.21 Chronic pain due to trauma; R53.82 Chronic fatigue, unspecified; Z23 Encounter for immunization; Z79.891 Long term (current) use of opiate analgesic
CPT/HCPCS: 36415; 80053; 85025; 90471; 90686

== ENCOUNTER 2020-06-29 06:19 | Outpatient (CLI) | payer MEDICARE, SELFPAY ==
--- NOTE | 2020-06-29 12:31 | ONC FU_ITS ---
Dr. Krause follow up note Patient: Bijan Eagle Unit #: [id number]: 1970 Dicatated By: Clif Krasue M.D.Date of Visit:Jun 29, 2020 Onc Med Follow-up/Prog Note History of Present Illness: This is a 50 year old man with an extensive history of intractable chronic lower back pain, requiring multiple surgery including thoracic spinal cord stimulator implantation and laminectomy on 10/09/14 for spinal stenosis. The patient has chronic long-term opiate use. He also has a history of testosterone deficiency in the 2010. The patient suffers from depression. On routine laboratory analysis from 04/2415 his laboratory analysis revealed platelets of 654,000, and a repeat one week later on 05/09/15 increased to 717,000. He had adequate WBC and hemoglobin levels. His TSH measured 0.48 testosterone 218. The patient was first seen on 06/07/2015. Repeat laboratory analysis remained elevated platelets at 649. Further workup failed to find any evidence of reactive thrombocytosis. LDH 152, ESR 4, ferritin 16, but iron saturation 32%. He denied history of smoking. He had mild splenomegaly by CT imaging in June 2015. He denies history of bleeding, except prolonged bleeding with extensive mandibular surgery. He has uncomplicated molar tooth removal later on. He has no recent bleeding. No history of thrombosis. Bone marrow biopsy in June 2015 revealed hypercellular bone marrow at 90-100% cellularity, with significant megakaryocyte hyperplasia but also with significant dyspoiesis. About 5% of red cell precursors had dyspoiesis as well. Granulocytes were mature and normal in numbers. Flow cytometry and FISH panel for MDS unrevealing. Conventional cytogenetics unrevealing. Reticulin stain not increased. Absent iron storage was noted. Repeat iron studies with iron saturation 12%, ferritin 19. Further clonal analysis with BCR ABL, roxanne 2, roxanne 2 exon 12, MPL were completely unrevealing. Overlap of MDS/MPD was suspected. He began on oral iron supplementation, but despite of normalized iron panel, he had not developed erythrocytosis. Pure MPD with polycythemia rubra vera or essential thrombocythemia was felt to be unlikely.On hydroxyurea 500 mg 5 days a week Increased to 500 mg by mouth daily on 11/09/2019 And still taking testosterone supplements 1 mL every 3 weeks as per his PMDs recommendation Molecular testing done for myeloproliferative disorder on May 29, 2020 showed CA LR exon 9 mutation detected, mutations of this type are associated with essential thrombocythemia and primary myelofibrosis and no mutation was detected in codon 617 of Roxanne 2 Came for follow-up, denies any specific complaints, no fever chills, no nausea vomiting, no diarrhea or constipation, tolerating hydroxyurea well Medications: Aspirin 1 (81 mg) Tablet, enteric coated Oral daily, BuPROPion HCl ER (XL) 1 (450 mg) Tablet SR 24 HR Oral daily, Furosemide 1 (40 mg) Tablet Oral daily, Hydrocodone-Acetaminophen 1 Tablet (of 10-325 mg) Oral four times a day PRN, Hydroxyurea 1 Tablet (of 500 mg) Oral daily, Lyrica 2 Capsule (of 200 mg) Oral b.i.d., Methadone HCl 2 Tablet (of 10 mg) Oral t.i.d., MiraLax Powder Oral PRN, Omeprazole 1 (20 mg) Capsule Delayed Release Oral daily, PARoxetine HCl 1 Tablet (of 20 mg) Oral daily, Potassium Chloride ER 1 (20 meq) Tablet, controlled release Oral daily, SEROquel 1 Tablet (of 50 mg) Oral daily, Zolpidem Tartrate 1 Tablet (of 10 mg) Oral at bedtime Allergies: Citalopram Hydrobromide and Sertraline HCl. Review of Systems: Review of Systems is not available for this patient. Vital Signs: Performed on Jun 29, 2020 11:26 Height - 70.00 in Weight - 205.2 lbs (LOW) BSA - 2.11 sq.m BMI - 29.44 Temperature - 99.0 F (HIGH) Pulse - 89 /min Respiration - 20 /min BP - 161/82 mm(hg) (HIGH) O2 Sat - 100 % Pain - 6 Performance Status: 0 - Fully active, able to carry on all predisease activities without restrictions. (ECOG) Physical Examination: ENMT - No mouth sores, no thrush, no jaundice, Respiratory - Lungs are clear to auscultation, Cardiovascular - Regular rate and rhythm of heart, Abdomen - Soft, bowel sounds present, Extremities - No visible edema. Lab/Imaging: Test performed on Jun 22, 2020 10:44 Sodium 141 mmol/L Potassium 4.4 mmol/L Chloride 106 mmol/L CO2 28 mmol/L Anion Gap 11.4 BUN 15 mg/dL Creatinine 1.1 mg/dL Cr Clearance (Est) 106.2400 mL/min eGFR 70.3 mL/min Glucose 97 mg/dL Osmolality - Calculated 293 mOsm/kg Calcium 9.2 mg/dL Protein, Total 5.8 g/dL Albumin 3.9 g/dL Globulin 1.9 g/dL Bilirubin, Total 0.4 mg/dL ALT (SGPT) 15 U/L AST (SGOT) 17 U/L Alkaline Phosphatase 41 IU/L WBC 3.5 10 3/uL RBC 4.28 10 6/uL HGB 12.7 g/dL HCT 40.7 % MCV 95.1 fL MCH 29.7 pg MCHC 31.2 g/dL RDW 17.0 % Platelet Count 433 10 3/cmm MPV 9.8 fL Neutrophils 2.38 10 3/uL Lymphocytes 0.7 10 3/uL Monocytes 0.3 10 3/uL Eosinophils 0.1 10 3/uL Basophils 0.0 10 3/uL Neutrophil % 68.6 % Lymphocyte % 19.9 % Monocyte % 8.9 % Eosinophil % 1.7 % Basophils % 0.6 % NRBC % 0 % Impression: Essential thrombocythemia confirmed by molecular testing done on May 29, 2020 which showed presence of SHAUNA R exon 9 mutation, mutation of this type or associated with essential thrombocythemia and primary myelofibrosis And no mutation was detected in codon 617 of Roxanne 2, thus ruled out. h/o persistent thrombocytosis and mild splenomegaly. 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 He has underlying testosterone deficiency, depression, severe chronic lower back pain requiring spinal cord stimulator implantation and back surgeries. .Polycythemia probably due to testosterone supplement, or underlying MPD , workup done in the past for myeloproliferative disorder because of thrombocytosis was inconclusive Bone marrow done on 07/16/2017 showed 100% cellularity with significant megakaryocyte proliferation and dyspoiesis. RBC precursors with some dyspoiesis noted including bi nucleated precursors and some nuclear/cytoplasmic dyssynchrony. No abnormal increase in blast cells. Flow cytometry showed no monocytic B-cell or aberrant T-cell population detected. Bone marrow fish for MDS no MDS related abnormality noted Bone marrow fish CML panel BCR/ABL fusion not detected Bone marrow chromosomal analysis no abnormality seen Started on hydroxyurea 500 mg daily on 10/29/2017 for progressive thrombocytosis and persistent polycythemia.Good response to the treatment, hydroxyurea dose changed to 500 mg/ d by mouth 5 days / week on 11/16/2017, increased to 500 mg by mouth daily on 11/09/2019 Plan: Discussed with patient regarding his labs white blood count 3.5 hemoglobin 12.7 hematocrit 40.7 platelets 433,000 CMP within normal limits Clinically, patient is doing well with no new signs symptoms, follow-up molecular testing for myeloproliferative disorder confirmed mutation and SHAUNA R exon 9 which is seen in patient with essential thrombocythemia. And also no mutation detected in exon 617 of JAK2, thus ruled out. So his polycythemia is due to testosterone supplement and his thrombocytosis is due to essential thrombocythemia, which is responding well to hydroxyurea, will continue and monitor his mild leukopenia, patient return to clinic in 1 month with CBC Signed By: Clif Krause M.D. <<Signature on File>>
== END 2020-06-29 06:20 | disposition home or self-care (01) ==
LOC: ONCMED 06:20
PROVIDERS: PCP Internal Medicine; Visit Provider Internal Medicine Hematology & Oncology
DX: D47.3 Essential (hemorrhagic) thrombocythemia (principal); D75.1 Secondary polycythemia; T38.7X5A Adverse effect of androgens and anabolic congeners, initial encounter; E29.1 Testicular hypofunction; F32.9 Major depressive disorder, single episode, unspecified; G89.29 Other chronic pain; M54.5 Low back pain; Z96.82 Presence of neurostimulator; Z79.899 Other long term (current) drug therapy
CPT/HCPCS: 99214

== ENCOUNTER → 2020-07-20 08:26 | Outpatient (BNVA) | payer MEDICARE, SELFPAY | PROVIDERS: Family Provider Internal Medicine; PCP Internal Medicine; Visit Provider Anesthesiology | DX: M54.42 Lumbago with sciatica, left side (principal); G47.00 Insomnia, unspecified; Z79.891 Long term (current) use of opiate analgesic | CPT/HCPCS: 99213; 99214 ==

== ENCOUNTER 2020-07-23 05:59 | Outpatient (CLI) | payer MEDICARE, SELFPAY ==
[2020-07-23 10:47] LABS: Basophils % 0.6 %; Eosinophils % 0.8 %; Hematocrit 45.4 % (42.0-52.0); Hemoglobin 13.8 g/dL (11.7-16.6); Lymphocytes # 0.9 10^3/uL (0.8-4.8); Lymphocytes % 17.8 %; Mean Corpuscular HGB Conc 30.4 g/dL (30.0-36.0); Mean Corpuscular Volume 95.4 fL (80-94); Mean Platelet Volume 10.6 fL (7.4-10.4); Monocytes # 0.5 10^3/uL (0.2-0.9); Monocytes % 8.7 %; Neutrophils # 3.71 10^3/uL (1.8-7.7); Neutrophils % 71.7 %; Nucleated Red Blood Cells % 0 %; Platelet Count 443 10^3/cmm (130-400); Red Blood Count 4.76 10^6/uL (4.1-5.3); Red Cell Distribution Width 17.2 % (12.1-15.1); White Blood Count 5.2 10^3/uL (4.0-10.0)
== END 2020-07-23 06:00 | disposition home or self-care (01) ==
LOC: ONCMED 06:00
PROVIDERS: Family Provider Internal Medicine; PCP Internal Medicine; Visit Provider Internal Medicine Hematology & Oncology
DX: D47.3 Essential (hemorrhagic) thrombocythemia (principal); D46.9 Myelodysplastic syndrome, unspecified; E61.1 Iron deficiency; E29.1 Testicular hypofunction; F33.41 Major depressive disorder, recurrent, in partial remission; G89.21 Chronic pain due to trauma; R53.82 Chronic fatigue, unspecified; Z79.891 Long term (current) use of opiate analgesic
CPT/HCPCS: 36415; 85025

== ENCOUNTER 2020-07-25 05:48 | Outpatient (CLI) | payer MEDICARE, SELFPAY ==
--- NOTE | 2020-07-25 13:13 | ONC FU_ITS ---
Dr. Krause follow up note Patient: Bijan Eagle Unit #: [id number]: 1970 Dicatated By: Clif Krause M.D.Date of Visit:Jul 25, 2020 Onc Med Follow-up/Prog Note History of Present Illness: This is a 50 year old man with an extensive history of intractable chronic lower back pain, requiring multiple surgery including thoracic spinal cord stimulator implantation and laminectomy on 10/09/14 for spinal stenosis. The patient has chronic long-term opiate use. He also has a history of testosterone deficiency in the 2010. The patient suffers from depression. On routine laboratory analysis from 04/2415 his laboratory analysis revealed platelets of 654,000, and a repeat one week later on 05/09/15 increased to 717,000. He had adequate WBC and hemoglobin levels. His TSH measured 0.48 testosterone 218. The patient was first seen on 06/07/2015. Repeat laboratory analysis remained elevated platelets at 649. Further workup failed to find any evidence of reactive thrombocytosis. LDH 152, ESR 4, ferritin 16, but iron saturation 32%. He denied history of smoking. He had mild splenomegaly by CT imaging in June 2015. He denies history of bleeding, except prolonged bleeding with extensive mandibular surgery. He has uncomplicated molar tooth removal later on. He has no recent bleeding. No history of thrombosis. Bone marrow biopsy in June 2015 revealed hypercellular bone marrow at 90-100% cellularity, with significant megakaryocyte hyperplasia but also with significant dyspoiesis. About 5% of red cell precursors had dyspoiesis as well. Granulocytes were mature and normal in numbers. Flow cytometry and FISH panel for MDS unrevealing. Conventional cytogenetics unrevealing. Reticulin stain not increased. Absent iron storage was noted. Repeat iron studies with iron saturation 12%, ferritin 19. Further clonal analysis with BCR ABL, roxanne 2, roxanne 2 exon 12, MPL were completely unrevealing. Overlap of MDS/MPD was suspected. He began on oral iron supplementation, but despite of normalized iron panel, he had not developed erythrocytosis. Pure MPD with polycythemia rubra vera or essential thrombocythemia was felt to be unlikely.On hydroxyurea 500 mg 5 days a week Increased to 500 mg by mouth daily on 11/09/2019 And still taking testosterone supplements 1 mL every 3 weeks as per his PMDs recommendation Molecular testing done for myeloproliferative disorder on May 29, 2020 showed CA LR exon 9 mutation detected, mutations of this type are associated with essential thrombocythemia and primary myelofibrosis and no mutation was detected in codon 617 of Roxanne 2 Came for follow-up, denies any specific complaints, no fever chills, no nausea or vomiting, no diarrhea constipation, no headaches no blurred vision or double vision, no chest pain or heaviness. Medications: Aspirin 1 (81 mg) Tablet, enteric coated Oral daily, BuPROPion HCl ER (XL) 1 (450 mg) Tablet SR 24 HR Oral daily, Furosemide 1 (40 mg) Tablet Oral daily, Hydrocodone-Acetaminophen 1 Tablet (of 10-325 mg) Oral four times a day PRN, Hydroxyurea 1 Tablet (of 500 mg) Oral daily, Lyrica 2 Capsule (of 200 mg) Oral b.i.d., Methadone HCl 2 Tablet (of 10 mg) Oral t.i.d., MiraLax Powder Oral PRN, Omeprazole 1 (20 mg) Capsule Delayed Release Oral daily, PARoxetine HCl 1 Tablet (of 20 mg) Oral daily, Potassium Chloride ER 1 (20 meq) Tablet, controlled release Oral daily, SEROquel 1 Tablet (of 50 mg) Oral daily, Zolpidem Tartrate 1 Tablet (of 10 mg) Oral at bedtime Allergies: Citalopram Hydrobromide and Sertraline HCl. Review of Systems: Review of Systems is not available for this patient. Vital Signs: Performed on Jul 25, 2020 12:40 Height - 70.00 in Weight - 209.2 lbs (HIGH) BSA - 2.13 sq.m BMI - 30.02 (HIGH) Temperature - 97.4 F (LOW) Pulse - 95 /min Respiration - 20 /min BP - 152/89 mm(hg) (HIGH) O2 Sat - 97 % Pain - 0 Performance Status: 0 - Fully active, able to carry on all predisease activities without restrictions. (ECOG) Physical Examination: ENMT - No mouth sores, no thrush, no jaundice, Respiratory - Lungs are clear to auscultationg, Cardiovascular - Regular rate and rhythm of heart, Abdomen - Soft, bowel sounds present, Extremities - No visible edema. Lab/Imaging: Test performed on Jun 22, 2020 10:44 Sodium 141 mmol/L Potassium 4.4 mmol/L Chloride 106 mmol/L CO2 28 mmol/L Anion Gap 11.4 BUN 15 mg/dL Creatinine 1.1 mg/dL Cr Clearance (Est) 106.2400 mL/min eGFR 70.3 mL/min Glucose 97 mg/dL Osmolality - Calculated 293 mOsm/kg Calcium 9.2 mg/dL Protein, Total 5.8 g/dL Albumin 3.9 g/dL Globulin 1.9 g/dL Bilirubin, Total 0.4 mg/dL ALT (SGPT) 15 U/L AST (SGOT) 17 U/L Alkaline Phosphatase 41 IU/L WBC 3.5 10 3/uL RBC 4.28 10 6/uL HGB 12.7 g/dL HCT 40.7 % MCV 95.1 fL MCH 29.7 pg MCHC 31.2 g/dL RDW 17.0 % Platelet Count 433 10 3/cmm MPV 9.8 fL Neutrophils 2.38 10 3/uL Lymphocytes 0.7 10 3/uL Monocytes 0.3 10 3/uL Eosinophils 0.1 10 3/uL Basophils 0.0 10 3/uL Neutrophil % 68.6 % Lymphocyte % 19.9 % Monocyte % 8.9 % Eosinophil % 1.7 % Basophils % 0.6 % NRBC % 0 % Impression: Essential thrombocythemia confirmed by molecular testing done on May 29, 2020 which showed presence of SHAUNA R exon 9 mutation, mutation of this type or associated with essential thrombocythemia and primary myelofibrosis And no mutation was detected in codon 617 of Roxanne 2, thus ruled out. h/o persistent thrombocytosis and mild splenomegaly. 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 He has underlying testosterone deficiency, depression, severe chronic lower back pain requiring spinal cord stimulator implantation and back surgeries. .Polycythemia probably due to testosterone supplement, or underlying MPD , workup done in the past for myeloproliferative disorder because of thrombocytosis was inconclusive Bone marrow done on 07/16/2017 showed 100% cellularity with significant megakaryocyte proliferation and dyspoiesis. RBC precursors with some dyspoiesis noted including bi nucleated precursors and some nuclear/cytoplasmic dyssynchrony. No abnormal increase in blast cells. Flow cytometry showed no monocytic B-cell or aberrant T-cell population detected. Bone marrow fish for MDS no MDS related abnormality noted Bone marrow fish CML panel BCR/ABL fusion not detected Bone marrow chromosomal analysis no abnormality seen Started on hydroxyurea 500 mg daily on 10/29/2017 for progressive thrombocytosis and persistent polycythemia.Good response to the treatment, hydroxyurea dose changed to 500 mg/ d by mouth 5 days / week on 11/16/2017, increased to 500 mg by mouth daily on 11/09/2019 Plan: Discussed with patient regarding his labs white blood count 5.2 hemoglobin 13.8 hematocrit 45.4 platelets 443,000 Clinically, patient doing well with no new signs symptoms tolerating hydroxyurea well follow-up labs shows platelet count continue to improve and hematocrit within desirable range we will continue with hydroxyurea 500 mg p.o. daily and return to clinic in 2 months with CBC Signed By: Clif Krause M.D. <<Signature on File>>
== END 2020-07-25 05:49 | disposition home or self-care (01) ==
LOC: ONCMED 05:49
PROVIDERS: Family Provider Internal Medicine; PCP Internal Medicine; Visit Provider Internal Medicine Hematology & Oncology
DX: D47.3 Essential (hemorrhagic) thrombocythemia (principal); D75.1 Secondary polycythemia; M35.1 Other overlap syndromes; E29.1 Testicular hypofunction; F32.9 Major depressive disorder, single episode, unspecified; M54.5 Low back pain; R16.1 Splenomegaly, not elsewhere classified; Z96.82 Presence of neurostimulator; Z79.899 Other long term (current) drug therapy
CPT/HCPCS: 99214

== ENCOUNTER → 2020-09-20 10:18 | Outpatient (BNVA) | payer MEDICARE, SELFPAY | PROVIDERS: Family Provider Internal Medicine; PCP Internal Medicine; Visit Provider Anesthesiology | DX: G89.29 Other chronic pain (principal); M54.42 Lumbago with sciatica, left side; G47.00 Insomnia, unspecified; Z79.891 Long term (current) use of opiate analgesic | CPT/HCPCS: 99213 ==

== ENCOUNTER 2020-09-25 11:22 | Outpatient (CLI) | payer MEDICARE, SELFPAY ==
[2020-09-25 11:55] LABS: Basophils % 0.8 %; Eosinophils # 0.1 10^3/uL (0.0-0.8); Eosinophils % 1.6 %; Hematocrit 44.4 % (42.0-52.0); Hemoglobin 13.7 g/dL (11.7-16.6); Lymphocytes # 0.9 10^3/uL (0.8-4.8); Lymphocytes % 17.9 %; Mean Corpuscular HGB Conc 30.9 g/dL (30.0-36.0); Mean Corpuscular Hemoglobin 29.1 pg (28.0-34.0); Mean Corpuscular Volume 94.5 fL (80-94); Mean Platelet Volume 10.4 fL (7.4-10.4); Monocytes # 0.4 10^3/uL (0.2-0.9); Monocytes % 7.6 %; Neutrophils # 3.57 10^3/uL (1.8-7.7); Neutrophils % 71.7 %; Nucleated Red Blood Cells % 0.4 %; Platelet Count 510 10^3/cmm (130-400); Red Cell Distribution Width 16.2 % (12.1-15.1)
[2020-09-25 12:21] LABS: Alanine Aminotransferase 15 U/L (0-41); Albumin Level 4.5 g/dL (3.5-5.2); Alkaline Phosphatase 43 IU/L (40-130); Anion Gap 10.1 (5-19); Aspartate Amino Transferase 17 U/L (0-40); Blood Urea Nitrogen 15 mg/dL (6-20); Carbon Dioxide 33 mmol/L (22-29); Chloride 101 mmol/L (98-107); Globulin 2.1 g/dL (1.3-4.6); Glomerular Filtration Rate 78.5 mL/min (90-130); Glucose 95 mg/dL (65-115); Osmolality Calculated 289 mOsm/kg (285-295); Potassium 5.1 mmol/L (3.5-5.1); Sodium 139 mmol/L (136-145); Total Bilirubin 0.4 mg/dL (0.15-1.2); Total Protein 6.6 g/dL (6.6-8.7)
--- NOTE | 2020-09-25 13:32 | ONC FU_ITS ---
Dr. Krause follow up note Patient: Bijan Eagle Unit #: [id number]: 1970 Dicatated By: Clif Krause M.D.Date of Visit:Sep 25, 2020 Onc Med Follow-up/Prog Note History of Present Illness: This is a 50 year old man with an extensive history of intractable chronic lower back pain, requiring multiple surgery including thoracic spinal cord stimulator implantation and laminectomy on 10/09/14 for spinal stenosis. The patient has chronic long-term opiate use. He also has a history of testosterone deficiency in the 2010. The patient suffers from depression. On routine laboratory analysis from 04/2415 his laboratory analysis revealed platelets of 654,000, and a repeat one week later on 05/09/15 increased to 717,000. He had adequate WBC and hemoglobin levels. His TSH measured 0.48 testosterone 218. The patient was first seen on 06/07/2015. Repeat laboratory analysis remained elevated platelets at 649. Further workup failed to find any evidence of reactive thrombocytosis. LDH 152, ESR 4, ferritin 16, but iron saturation 32%. He denied history of smoking. He had mild splenomegaly by CT imaging in June 2015. He denies history of bleeding, except prolonged bleeding with extensive mandibular surgery. He has uncomplicated molar tooth removal later on. He has no recent bleeding. No history of thrombosis. Bone marrow biopsy in June 2015 revealed hypercellular bone marrow at 90-100% cellularity, with significant megakaryocyte hyperplasia but also with significant dyspoiesis. About 5% of red cell precursors had dyspoiesis as well. Granulocytes were mature and normal in numbers. Flow cytometry and FISH panel for MDS unrevealing. Conventional cytogenetics unrevealing. Reticulin stain not increased. Absent iron storage was noted. Repeat iron studies with iron saturation 12%, ferritin 19. Further clonal analysis with BCR ABL, roxanne 2, roxanne 2 exon 12, MPL were completely unrevealing. Overlap of MDS/MPD was suspected. He began on oral iron supplementation, but despite of normalized iron panel, he had not developed erythrocytosis. Pure MPD with polycythemia rubra vera or essential thrombocythemia was felt to be unlikely.On hydroxyurea 500 mg 5 days a week Increased to 500 mg by mouth daily on 11/09/2019 And still taking testosterone supplements 1 mL every 3 weeks as per his PMDs recommendation Molecular testing done for myeloproliferative disorder on May 29, 2020 showed CA LR exon 9 mutation detected, mutations of this type are associated with essential thrombocythemia and primary myelofibrosis and no mutation was detected in codon 617 of Roxanne 2 Came for follow-up, denies any specific complaints, no fever chills, no nausea or vomiting, no diarrhea or constipation, no headaches no blurred vision or double vision, no chest heaviness, no abdominal pain. Tolerating hydroxyurea well Medications: Aspirin 1 (81 mg) Tablet, enteric coated Oral daily, BuPROPion HCl ER (XL) 1 (450 mg) Tablet SR 24 HR Oral daily, Furosemide 1 (40 mg) Tablet Oral daily, Hydrocodone-Acetaminophen 1 Tablet (of 10-325 mg) Oral four times a day PRN, Hydroxyurea 1 Tablet (of 500 mg) Oral daily, Lyrica 2 Capsule (of 200 mg) Oral b.i.d., Methadone HCl 2 Tablet (of 10 mg) Oral t.i.d., MiraLax Powder Oral PRN, Omeprazole 1 (20 mg) Capsule Delayed Release Oral daily, PARoxetine HCl 1 Tablet (of 40 mg) Oral daily, Potassium Chloride ER 1 (20 meq) Tablet, controlled release Oral daily, SEROquel 1 Tablet (of 50 mg) Oral daily, Zolpidem Tartrate 1 Tablet (of 10 mg) Oral at bedtime Allergies: Citalopram Hydrobromide and Sertraline HCl. Review of Systems: Constitutional - Appetite is good and weight is stable. No fever, chills, hot flashes, or night sweats. Energy level is fair, ENMT - No sinus congestion/drainage. No mouth sores. No sore throat or difficulty swallowing, Hematologic/Lymphatic - Positive for easy bruising, Respiratory - Occasional shortness of breath. No cough. No pleuritic pain or hemoptysis, Cardiovascular - No angina pain. No palpitations, Gastrointestinal - No nausea or vomiting. No heartburn or acid reflux. No diarrhea or constipation. No blood in the stool or black stools, Genitourinary (M) - No dysuria or hematuria. No urinary frequency. No urgency or incontinence, Musculoskeletal - No joint or bone pain, Neurologic - No headache or dizziness. No numbness/paresthesias or other focal neurologic symptoms, Psychiatric - No anxiety or depression. No insomnia. Vital Signs: Performed on Sep 25, 2020 13:02 Height - 70.00 in Weight - 201.6 lbs (LOW) BSA - 2.09 sq.m BMI - 28.93 Temperature - 97.7 F (LOW) Pulse - 10 /min (LOW) Respiration - 16 /min BP - 160/89 mm(hg) (HIGH) O2 Sat - 100 % Pain - 4 Performance Status: 0 - Fully active, able to carry on all predisease activities without restrictions. (ECOG) Physical Examination: ENMT - No mouth sores, no thrush, no Jaundice, Respiratory - Lungs are clear to auscultation, Cardiovascular - Regular rate and rhythm of heart, Abdomen - Soft, bowel sounds present, Extremities - No visible edema. Lab/Imaging: Test performed on Jul 23, 2020 10:27 WBC 5.2 10 3/uL RBC 4.76 10 6/uL HGB 13.8 g/dL HCT 45.4 % MCV 95.4 fL MCH 29.0 pg MCHC 30.4 g/dL RDW 17.2 % Platelet Count 443 10 3/cmm MPV 10.6 fL Neutrophils 3.71 10 3/uL Lymphocytes 0.9 10 3/uL Monocytes 0.5 10 3/uL Eosinophils 0.0 10 3/uL Basophils 0.0 10 3/uL Neutrophil % 71.7 % Lymphocyte % 17.8 % Monocyte % 8.7 % Eosinophil % 0.8 % Basophils % 0.6 % NRBC % 0 % Test performed on Jun 22, 2020 10:44 Sodium 141 mmol/L Potassium 4.4 mmol/L Chloride 106 mmol/L CO2 28 mmol/L Anion Gap 11.4 BUN 15 mg/dL Creatinine 1.1 mg/dL Cr Clearance (Est) 106.2400 mL/min eGFR 70.3 mL/min Glucose 97 mg/dL Osmolality - Calculated 293 mOsm/kg Calcium 9.2 mg/dL Protein, Total 5.8 g/dL Albumin 3.9 g/dL Globulin 1.9 g/dL Bilirubin, Total 0.4 mg/dL ALT (SGPT) 15 U/L AST (SGOT) 17 U/L Alkaline Phosphatase 41 IU/L Impression: Essential thrombocythemia confirmed by molecular testing done on May 29, 2020 which showed presence of SHAUNA R exon 9 mutation, mutation of this type or associated with essential thrombocythemia and primary myelofibrosis And no mutation was detected in codon 617 of Roxanne 2, thus ruled out. h/o persistent thrombocytosis and mild splenomegaly. 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 He has underlying testosterone deficiency, depression, severe chronic lower back pain requiring spinal cord stimulator implantation and back surgeries. .Polycythemia probably due to testosterone supplement, or underlying MPD , workup done in the past for myeloproliferative disorder because of thrombocytosis was inconclusive Bone marrow done on 07/16/2017 showed 100% cellularity with significant megakaryocyte proliferation and dyspoiesis. RBC precursors with some dyspoiesis noted including bi nucleated precursors and some nuclear/cytoplasmic dyssynchrony. No abnormal increase in blast cells. Flow cytometry showed no monocytic B-cell or aberrant T-cell population detected. Bone marrow fish for MDS no MDS related abnormality noted Bone marrow fish CML panel BCR/ABL fusion not detected Bone marrow chromosomal analysis no abnormality seen Started on hydroxyurea 500 mg daily on 10/29/2017 for progressive thrombocytosis and persistent polycythemia.Good response to the treatment, hydroxyurea dose changed to 500 mg/ d by mouth 5 days / week on 11/16/2017, increased to 500 mg by mouth daily on 11/09/2019 Plan: Discussed with patient regarding his labs white blood count 5 hemoglobin 13.7 hematocrit 44.4 platelets 510,000 CMP within normal limits Clinically, patient is doing well with no new signs symptom is follow-up labs shows mild thrombocytosis but stable and hematocrit also within normal range, patient is tolerating hydroxyurea well, will continue with hydroxyurea 500 mg p.o. daily and return to clinic in 3 months with CBC. Patient was advised to be compliant with hydroxyurea. Signed By: Clif Krause M.D. <<Signature on File>>
== END 2020-09-25 11:23 | disposition home or self-care (01) ==
LOC: ONCMED 11:24
PROVIDERS: Family Provider Internal Medicine; PCP Internal Medicine; Visit Provider Internal Medicine Hematology & Oncology
DX: D47.3 Essential (hemorrhagic) thrombocythemia (principal); D46.9 Myelodysplastic syndrome, unspecified; E61.1 Iron deficiency; E29.1 Testicular hypofunction; F33.41 Major depressive disorder, recurrent, in partial remission; G89.21 Chronic pain due to trauma; R53.82 Chronic fatigue, unspecified; Z79.891 Long term (current) use of opiate analgesic
CPT/HCPCS: 36415; 80053; 85025; G0463

== ENCOUNTER → 2020-11-14 10:01 | Outpatient (BNVA) | payer MEDICARE, SELFPAY | PROVIDERS: Family Provider Internal Medicine; PCP Internal Medicine; Visit Provider Anesthesiology | DX: G89.29 Other chronic pain (principal); M54.42 Lumbago with sciatica, left side; G47.00 Insomnia, unspecified; Z79.891 Long term (current) use of opiate analgesic | CPT/HCPCS: 99213 ==

== ENCOUNTER → 2020-12-28 11:14 | Outpatient (BNVA) | payer MEDICARE, SELFPAY | PROVIDERS: Family Provider Internal Medicine; PCP Internal Medicine; Visit Provider Nurse Practitioner | DX: F41.1 Generalized anxiety disorder (principal); F33.1 Major depressive disorder, recurrent, moderate | CPT/HCPCS: 99214 ==

== ENCOUNTER → 2021-01-04 10:30 | Outpatient (BNVA) | payer MEDICARE, SELFPAY | PROVIDERS: Family Provider Internal Medicine; PCP Internal Medicine; Visit Provider Anesthesiology | DX: G89.29 Other chronic pain (principal); M54.42 Lumbago with sciatica, left side; G47.00 Insomnia, unspecified; Z79.891 Long term (current) use of opiate analgesic | CPT/HCPCS: 99213 ==

== ENCOUNTER 2021-01-08 13:44 | Outpatient (CLI) | payer MEDICARE, SELFPAY ==
[2021-01-08 15:10] LABS: Basophils # 0.1 10^3/uL (0.0-0.1); Basophils % 1.6 %; Eosinophils # 0.2 10^3/uL (0.0-0.8); Eosinophils % 4.4 %; Hematocrit 45.6 % (42.0-52.0); Hemoglobin 14.1 g/dL (11.7-16.6); Lymphocytes # 0.8 10^3/uL (0.8-4.8); Lymphocytes % 15.8 %; Mean Corpuscular HGB Conc 30.9 g/dL (30.0-36.0); Mean Corpuscular Hemoglobin 30.1 pg (28.0-34.0); Mean Corpuscular Volume 97.4 fL (80-94); Mean Platelet Volume 10.8 fL (7.4-10.4); Monocytes # 0.4 10^3/uL (0.2-0.9); Monocytes % 7.9 %; Neutrophils # 3.53 10^3/uL (1.8-7.7); Neutrophils % 69.9 %; Nucleated Red Blood Cells % 0 %; Platelet Count 498 10^3/cmm (130-400); Red Blood Count 4.68 10^6/uL (4.1-5.3); White Blood Count 5.1 10^3/uL (4.0-10.0)
--- NOTE | 2021-01-08 15:53 | ONC FU_ITS ---
Dr. Krause follow up note Patient: Bijan Eagle Unit #: [id number]: 1970 Dicatated By: Clif Krause M.D.Date of Visit:January 08, 2021 Onc Med Follow-up/Prog Note History of Present Illness: This is a 50 year old man with an extensive history of intractable chronic lower back pain, requiring multiple surgery including thoracic spinal cord stimulator implantation and laminectomy on 10/09/14 for spinal stenosis. The patient has chronic long-term opiate use. He also has a history of testosterone deficiency in the 2010. The patient suffers from depression. On routine laboratory analysis from 04/2415 his laboratory analysis revealed platelets of 654,000, and a repeat one week later on 05/09/15 increased to 717,000. He had adequate WBC and hemoglobin levels. His TSH measured 0.48 testosterone 218. The patient was first seen on 06/07/2015. Repeat laboratory analysis remained elevated platelets at 649. Further workup failed to find any evidence of reactive thrombocytosis. LDH 152, ESR 4, ferritin 16, but iron saturation 32%. He denied history of smoking. He had mild splenomegaly by CT imaging in June 2015. He denies history of bleeding, except prolonged bleeding with extensive mandibular surgery. He has uncomplicated molar tooth removal later on. He has no recent bleeding. No history of thrombosis. Bone marrow biopsy in June 2015 revealed hypercellular bone marrow at 90-100% cellularity, with significant megakaryocyte hyperplasia but also with significant dyspoiesis. About 5% of red cell precursors had dyspoiesis as well. Granulocytes were mature and normal in numbers. Flow cytometry and FISH panel for MDS unrevealing. Conventional cytogenetics unrevealing. Reticulin stain not increased. Absent iron storage was noted. Repeat iron studies with iron saturation 12%, ferritin 19. Further clonal analysis with BCR ABL, roxanne 2, roxanne 2 exon 12, MPL were completely unrevealing. Overlap of MDS/MPD was suspected. He began on oral iron supplementation, but despite of normalized iron panel, he had not developed erythrocytosis. Pure MPD with polycythemia rubra vera or essential thrombocythemia was felt to be unlikely.On hydroxyurea 500 mg 5 days a week Increased to 500 mg by mouth daily on 11/09/2019 And still taking testosterone supplements 1 mL every 3 weeks as per his PMDs recommendation Molecular testing done for myeloproliferative disorder on May 29, 2020 showed CA LR exon 9 mutation detected, mutations of this type are associated with essential thrombocythemia and primary myelofibrosis and no mutation was detected in codon 617 of Roxanne 2 Came for follow-up, denies any specific complaints, except off and on diarrhea for the last few weeks but no fever chills, no mucus in his stool, no abdominal cramps, no he is watching his diet, and diarrhea is improving somewhat. No fever chills, no nausea or vomiting, no melena or hematochezia, no hemoptysis hematemesis, no headaches blurred vision double vision. Tolerating hydroxyurea well otherwise Medications: Aspirin 1 (81 mg) Tablet, enteric coated Oral daily, BuPROPion HCl ER (XL) 1 (450 mg) Tablet SR 24 HR Oral daily, Furosemide 1 (40 mg) Tablet Oral daily, Hydrocodone-Acetaminophen 1 Tablet (of 10-325 mg) Oral four times a day PRN, Hydroxyurea 1 Tablet (of 500 mg) Oral daily, Lyrica 2 Capsule (of 200 mg) Oral b.i.d., Methadone HCl 2 Tablet (of 10 mg) Oral t.i.d., MiraLax Powder Oral PRN, Omeprazole 1 (20 mg) Capsule Delayed Release Oral daily, PARoxetine HCl 1 Tablet (of 40 mg) Oral daily, Potassium Chloride ER 1 (20 meq) Tablet, controlled release Oral daily, SEROquel 1 Tablet (of 50 mg) Oral daily, Zolpidem Tartrate 1 Tablet (of 10 mg) Oral at bedtime Allergies: Citalopram Hydrobromide and Sertraline HCl. Review of Systems: Review of Systems is not available for this patient. Vital Signs: Performed on January 08, 2021 15:26 Height - 70.00 in Weight - 201.4 lbs (LOW) BSA - 2.09 sq.m BMI - 28.90 Temperature - 97.6 F (LOW) Pulse - 67 /min Respiration - 18 /min BP - 146/87 mm(hg) (HIGH) O2 Sat - 98 % Pain - 4 Fatigue - 7 Performance Status: 0 - Fully active, able to carry on all predisease activities without restrictions. (ECOG) Physical Examination: ENMT - No mouth sores, no thrush, no jaundice, Respiratory - Lungs are clear to auscultation, Cardiovascular - Regular rate and rhythm of heart, Abdomen - Soft, bowel sounds present, Extremities - No visible edema. Lab/Imaging: Test performed on Sep 25, 2020 11:37 Sodium 139 mmol/L Potassium 5.1 mmol/L Chloride 101 mmol/L CO2 33 mmol/L Anion Gap 10.1 BUN 15 mg/dL Creatinine 1.0 mg/dL Cr Clearance (Est) 111.77 mL/min eGFR 78.5 mL/min Glucose 95 mg/dL Osmolality - Calculated 289 mOsm/kg Calcium 9.0 mg/dL Protein, Total 6.6 g/dL Albumin 4.5 g/dL Globulin 2.1 g/dL Bilirubin, Total 0.4 mg/dL ALT (SGPT) 15 U/L AST (SGOT) 17 U/L Alkaline Phosphatase 43 IU/L WBC 5.0 10 3/uL RBC 4.70 10 6/uL HGB 13.7 g/dL HCT 44.4 % MCV 94.5 fL MCH 29.1 pg MCHC 30.9 g/dL RDW 16.2 % Platelet Count 510 10 3/cmm MPV 10.4 fL Neutrophils 3.57 10 3/uL Lymphocytes 0.9 10 3/uL Monocytes 0.4 10 3/uL Eosinophils 0.1 10 3/uL Basophils 0.0 10 3/uL Neutrophil % 71.7 % Lymphocyte % 17.9 % Monocyte % 7.6 % Eosinophil % 1.6 % Basophils % 0.8 % NRBC % 0.4 % Impression: Essential thrombocythemia confirmed by molecular testing done on May 29, 2020 which showed presence of SHAUNA R exon 9 mutation, mutation of this type or associated with essential thrombocythemia and primary myelofibrosis And no mutation was detected in codon 617 of Roxanne 2, thus ruled out. h/o persistent thrombocytosis and mild splenomegaly. 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 He has underlying testosterone deficiency, depression, severe chronic lower back pain requiring spinal cord stimulator implantation and back surgeries. .Polycythemia probably due to testosterone supplement, or underlying MPD , workup done in the past for myeloproliferative disorder because of thrombocytosis was inconclusive Bone marrow done on 07/16/2017 showed 100% cellularity with significant megakaryocyte proliferation and dyspoiesis. RBC precursors with some dyspoiesis noted including bi nucleated precursors and some nuclear/cytoplasmic dyssynchrony. No abnormal increase in blast cells. Flow cytometry showed no monocytic B-cell or aberrant T-cell population detected. Bone marrow fish for MDS no MDS related abnormality noted Bone marrow fish CML panel BCR/ABL fusion not detected Bone marrow chromosomal analysis no abnormality seen Started on hydroxyurea 500 mg daily on 10/29/2017 for progressive thrombocytosis and persistent polycythemia.Good response to the treatment, hydroxyurea dose changed to 500 mg/ d by mouth 5 days / week on 11/16/2017, increased to 500 mg by mouth daily on 11/09/2019 Plan: Discussed with patient regarding his labs white blood count 5.1 hemoglobin 14.1 hematocrit 45.6 platelets 498,000 compared to 510 previously Clinically, patient doing well with no new signs symptoms tolerating daily hydroxyurea well his follow-up lab shows hemoglobin/hematocrit in desirable range mild thrombocytosis but stable and improving, will continue with same dose of hydroxyurea 500 mg p.o. daily and then he will return to clinic in 3 months with CBC As far as mild off-and-on diarrhea is concerned etiology unclear, as per patient with diet monitoring it is improving, if there is a progression or worsening, he would contact his PMD for management. As per patient he had a colonoscopy done recently and it was unremarkable. Signed By: Clif Krause M.D. <<Signature on File>>
== END 2021-01-08 13:45 | disposition home or self-care (01) ==
LOC: ONCMED 13:46
PROVIDERS: PCP Internal Medicine; Visit Provider Internal Medicine Hematology & Oncology
DX: D69.6 Thrombocytopenia, unspecified (principal); D72.820 Lymphocytosis (symptomatic); R16.1 Splenomegaly, not elsewhere classified; E29.9 Testicular dysfunction, unspecified; F32.9 Major depressive disorder, single episode, unspecified; G89.29 Other chronic pain; M54.5 Low back pain; D75.1 Secondary polycythemia; Z79.899 Other long term (current) drug therapy
CPT/HCPCS: 36415; 85025; 99214

== ENCOUNTER → 2021-02-19 10:49 | Outpatient (BNVA) | payer MEDICARE, SELFPAY | PROVIDERS: PCP Internal Medicine; Visit Provider Nurse Practitioner | DX: F41.1 Generalized anxiety disorder (principal); F33.1 Major depressive disorder, recurrent, moderate; G47.00 Insomnia, unspecified | CPT/HCPCS: 99214 ==

== ENCOUNTER → 2021-03-08 10:36 | Outpatient (BNVA) | payer MEDICARE, SELFPAY | PROVIDERS: PCP Internal Medicine; Visit Provider Anesthesiology | DX: G89.29 Other chronic pain (principal); M54.42 Lumbago with sciatica, left side; G47.00 Insomnia, unspecified; Z79.891 Long term (current) use of opiate analgesic | CPT/HCPCS: 99213 ==

== ENCOUNTER 2021-04-09 14:04 | Outpatient (CLI) | payer MEDICARE, SELFPAY ==
[2021-04-09 14:50] LABS: Basophils % 0.7 %; Eosinophils # 0.2 10^3/uL (0.0-0.8); Eosinophils % 3.7 %; Hematocrit 43.7 % (42.0-52.0); Hemoglobin 13.2 g/dL (11.7-16.6); Lymphocytes # 0.9 10^3/uL (0.8-4.8); Lymphocytes % 15.3 %; Mean Corpuscular HGB Conc 30.2 g/dL (30.0-36.0); Mean Corpuscular Hemoglobin 28.5 pg (28.0-34.0); Mean Corpuscular Volume 94.4 fL (80-94); Mean Platelet Volume 10.5 fL (7.4-10.4); Monocytes # 0.4 10^3/uL (0.2-0.9); Monocytes % 7.5 %; Neutrophils # 4.17 10^3/uL (1.8-7.7); Neutrophils % 72.6 %; Nucleated Red Blood Cells % 0.5 %; Platelet Count 500 10^3/cmm (130-400); Red Blood Count 4.63 10^6/uL (4.1-5.3); Red Cell Distribution Width 17.3 % (12.1-15.1); White Blood Count 5.7 10^3/uL (4.0-10.0)
[2021-04-09 15:27] LABS: Testosterone Total 730.3 ng/dL (193-740)
--- NOTE | 2021-04-09 15:55 | ONC FU_ITS ---
Dr. Krause follow up note Patient: Bijan Eagle Unit #: [id number]: 1970 Dicatated By: Clif Krause M.D.Date of Visit:Apr 09, 2021 Onc Med Follow-up/Prog Note History of Present Illness: This is a 51 year old man with an extensive history of intractable chronic lower back pain, requiring multiple surgery including thoracic spinal cord stimulator implantation and laminectomy on 10/09/14 for spinal stenosis. The patient has chronic long-term opiate use. He also has a history of testosterone deficiency in the 2010. The patient suffers from depression. On routine laboratory analysis from 04/2415 his laboratory analysis revealed platelets of 654,000, and a repeat one week later on 05/09/15 increased to 717,000. He had adequate WBC and hemoglobin levels. His TSH measured 0.48 testosterone 218. The patient was first seen on 06/07/2015. Repeat laboratory analysis remained elevated platelets at 649. Further workup failed to find any evidence of reactive thrombocytosis. LDH 152, ESR 4, ferritin 16, but iron saturation 32%. He denied history of smoking. He had mild splenomegaly by CT imaging in June 2015. He denies history of bleeding, except prolonged bleeding with extensive mandibular surgery. He has uncomplicated molar tooth removal later on. He has no recent bleeding. No history of thrombosis. Bone marrow biopsy in June 2015 revealed hypercellular bone marrow at 90-100% cellularity, with significant megakaryocyte hyperplasia but also with significant dyspoiesis. About 5% of red cell precursors had dyspoiesis as well. Granulocytes were mature and normal in numbers. Flow cytometry and FISH panel for MDS unrevealing. Conventional cytogenetics unrevealing. Reticulin stain not increased. Absent iron storage was noted. Repeat iron studies with iron saturation 12%, ferritin 19. Further clonal analysis with BCR ABL, roxanne 2, roxanne 2 exon 12, MPL were completely unrevealing. Overlap of MDS/MPD was suspected. He began on oral iron supplementation, but despite of normalized iron panel, he had not developed erythrocytosis. Pure MPD with polycythemia rubra vera or essential thrombocythemia was felt to be unlikely.On hydroxyurea 500 mg 5 days a week Increased to 500 mg by mouth daily on 11/09/2019 And still taking testosterone supplements 1 mL every 3 weeks as per his PMDs recommendation Molecular testing done for myeloproliferative disorder on May 29, 2020 showed CA LR exon 9 mutation detected, mutations of this type are associated with essential thrombocythemia and primary myelofibrosis and no mutation was detected in codon 617 of Roxanne 2 On hydroxyurea 500 mg p.o. daily, Hydroxyurea dose increased to 1000 mg on Thursday and Thursday while continue with 500 mg daily on remaining days on April 09, 2021 because of persistent thrombocytosis Came for follow-up, denies any specific complaints, no fever chills, no nausea or vomiting, no diarrhea constipation, no nosebleed or gum bleed no petechia or ecchymosis, patient is taking daily baby aspirin and hydroxyurea 500 mg p.o. daily patient denies noncompliance Medications: Aspirin 1 (81 mg) Tablet, enteric coated Oral daily, BuPROPion HCl ER (XL) 1 (450 mg) Tablet SR 24 HR Oral daily, Furosemide 1 (40 mg) Tablet Oral daily, Hydrocodone-Acetaminophen 1 Tablet (of 10-325 mg) Oral four times a day PRN, Hydroxyurea 1 Tablet (of 500 mg) Oral daily, Lyrica 2 Capsule (of 200 mg) Oral b.i.d., Methadone HCl 2 Tablet (of 10 mg) Oral t.i.d., MiraLax Powder Oral PRN, Omeprazole 1 (20 mg) Capsule Delayed Release Oral daily, PARoxetine HCl 1 Tablet (of 40 mg) Oral daily, Potassium Chloride ER 1 (20 meq) Tablet, controlled release Oral daily, SEROquel 1 Tablet (of 50 mg) Oral daily, Zolpidem Tartrate 1 Tablet (of 10 mg) Oral at bedtime Allergies: Citalopram Hydrobromide and Sertraline HCl. Review of Systems: Review of Systems is not available for this patient. Vital Signs: Vitals are not available for this patient. Performance Status: 0 - Fully active, able to carry on all predisease activities without restrictions. (ECOG) Physical Examination: ENMT - No mouth sores, no thrush, no jaundice, Respiratory - Lungs are clear to auscultation, Cardiovascular - Regular rate and rhythm of heart, Abdomen - Soft, bowel sounds present, Extremities - No visible edema. Lab/Imaging: Most recent lab results are not available for this patient. Impression: Essential thrombocythemia confirmed by molecular testing done on May 29, 2020 which showed presence of SHAUNA R exon 9 mutation, mutation of this type or associated with essential thrombocythemia and primary myelofibrosis And no mutation was detected in codon 617 of Roxanne 2, thus ruled out. h/o persistent thrombocytosis and mild splenomegaly. 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 He has underlying testosterone deficiency, depression, severe chronic lower back pain requiring spinal cord stimulator implantation and back surgeries. .Polycythemia probably due to testosterone supplement, or underlying MPD , workup done in the past for myeloproliferative disorder because of thrombocytosis was inconclusive Bone marrow done on 07/16/2017 showed 100% cellularity with significant megakaryocyte proliferation and dyspoiesis. RBC precursors with some dyspoiesis noted including bi nucleated precursors and some nuclear/cytoplasmic dyssynchrony. No abnormal increase in blast cells. Flow cytometry showed no monocytic B-cell or aberrant T-cell population detected. Bone marrow fish for MDS no MDS related abnormality noted Bone marrow fish CML panel BCR/ABL fusion not detected Bone marrow chromosomal analysis no abnormality seen Started on hydroxyurea 500 mg daily on 10/29/2017 for progressive thrombocytosis and persistent polycythemia.Good response to the treatment, hydroxyurea dose changed to 500 mg/ d by mouth 5 days / week on 11/16/2017, increased to 500 mg by mouth daily on 11/09/2019 Plan: Discussed with patient regarding his labs white blood count 5.7 hemoglobin 13.2 hematocrit 43.7 platelets 500,000 Clinically, patient doing well with no new signs symptoms suggestive of thrombosis or bleeding, tolerating hydroxyurea 5 mg p.o. daily well but his follow-up labs shows persistent thrombocytosis while hemoglobin and white blood count are normal range, patient denies noncompliance, at this point will increase his hydroxyurea dose to 1000 mg on Thursday and Thursday while continue 5 mg p.o. daily on remaining days and then return to clinic in 1 month with CBC Signed By: Clif Krause M.D. <<Signature on File>>
== END 2021-04-09 14:05 | disposition home or self-care (01) ==
PROVIDERS: PCP Internal Medicine; Visit Provider Internal Medicine Hematology & Oncology
DX: D47.3 Essential (hemorrhagic) thrombocythemia (principal); R16.1 Splenomegaly, not elsewhere classified; D46.9 Myelodysplastic syndrome, unspecified; D75.1 Secondary polycythemia; Z79.899 Other long term (current) drug therapy
CPT/HCPCS: 36415; 84403; 85025; 99214

== ENCOUNTER → 2021-05-08 08:41 | Outpatient (BNVA) | payer MEDICARE, SELFPAY | PROVIDERS: PCP Internal Medicine; Visit Provider Nurse Practitioner | DX: F33.1 Major depressive disorder, recurrent, moderate (principal); F41.1 Generalized anxiety disorder | CPT/HCPCS: 99214 ==

== ENCOUNTER 2021-05-17 10:02 | Outpatient (CLI) | payer MEDICARE, SELFPAY ==
[2021-05-17 10:44] LABS: Basophils # 0.1 10^3/uL (0.0-0.1); Basophils % 0.9 %; Eosinophils # 0.1 10^3/uL (0.0-0.8); Eosinophils % 2.4 %; Hematocrit 43.4 % (42.0-52.0); Hemoglobin 13.6 g/dL (11.7-16.6); Lymphocytes % 17.1 %; Mean Corpuscular HGB Conc 31.3 g/dL (30.0-36.0); Mean Corpuscular Hemoglobin 29.3 pg (28.0-34.0); Mean Corpuscular Volume 93.5 fl (80-94); Mean Platelet Volume 10.9 fL (7.4-10.4); Monocytes # 0.5 10^3/uL (0.2-0.9); Monocytes % 9.1 %; Neutrophils # 3.99 10^3/uL (1.8-7.7); Neutrophils % 69.8 %; Nucleated Red Blood Cells # 0.1 /100WBC; Nucleated Red Blood Cells % 0.9 %; Platelet Count 429 10^3/cmm (130-400); Red Blood Count 4.64 10^6/uL (4.1-5.3); Red Cell Distribution Width 18.4 % (12.1-15.1); White Blood Count 5.7 10^3/uL (4.0-10.0)
--- NOTE | 2021-05-17 12:02 | ONC FU_ITS ---
Dr. Krause follow up note Patient: Bijan Eagle Unit #: [id number]: 1970 Dicatated By: Clif Krause M.D.Date of Visit:May 17, 2021 Onc Med Follow-up/Prog Note History of Present Illness: This is a 51 year old man with an extensive history of intractable chronic lower back pain, requiring multiple surgery including thoracic spinal cord stimulator implantation and laminectomy on 10/09/14 for spinal stenosis. The patient has chronic long-term opiate use. He also has a history of testosterone deficiency in the 2010. The patient suffers from depression. On routine laboratory analysis from 04/2415 his laboratory analysis revealed platelets of 654,000, and a repeat one week later on 05/09/15 increased to 717,000. He had adequate WBC and hemoglobin levels. His TSH measured 0.48 testosterone 218. The patient was first seen on 06/07/2015. Repeat laboratory analysis remained elevated platelets at 649. Further workup failed to find any evidence of reactive thrombocytosis. LDH 152, ESR 4, ferritin 16, but iron saturation 32%. He denied history of smoking. He had mild splenomegaly by CT imaging in June 2015. He denies history of bleeding, except prolonged bleeding with extensive mandibular surgery. He has uncomplicated molar tooth removal later on. He has no recent bleeding. No history of thrombosis. Bone marrow biopsy in June 2015 revealed hypercellular bone marrow at 90-100% cellularity, with significant megakaryocyte hyperplasia but also with significant dyspoiesis. About 5% of red cell precursors had dyspoiesis as well. Granulocytes were mature and normal in numbers. Flow cytometry and FISH panel for MDS unrevealing. Conventional cytogenetics unrevealing. Reticulin stain not increased. Absent iron storage was noted. Repeat iron studies with iron saturation 12%, ferritin 19. Further clonal analysis with BCR ABL, roxanne 2, roxanne 2 exon 12, MPL were completely unrevealing. Overlap of MDS/MPD was suspected. He began on oral iron supplementation, but despite of normalized iron panel, he had not developed erythrocytosis. Pure MPD with polycythemia rubra vera or essential thrombocythemia was felt to be unlikely.On hydroxyurea 500 mg 5 days a week Increased to 500 mg by mouth daily on 11/09/2019 And still taking testosterone supplements 1 mL every 3 weeks as per his PMDs recommendation Molecular testing done for myeloproliferative disorder on May 29, 2020 showed CA LR exon 9 mutation detected, mutations of this type are associated with essential thrombocythemia and primary myelofibrosis and no mutation was detected in codon 617 of Roxanne 2 On hydroxyurea 500 mg p.o. daily, Hydroxyurea dose increased to 1000 mg on Thursday and Thursday while continue with 500 mg daily on remaining days on April 09, 2021 because of persistent thrombocytosis Came for follow-up, denies any specific complaints, no fever chills, no nausea or vomiting, no diarrhea or constipation, no headaches blurred vision double vision, no skin rash, no jaundice, tolerating hydroxyurea well otherwise, Patient still on injectable testosterone supplement Medications: Aspirin 1 (81 mg) Tablet, enteric coated Oral daily, BuPROPion HCl ER (XL) 1 (450 mg) Tablet SR 24 HR Oral daily, hydroCHLOROthiazide (25 mg) Tablet Oral daily, Hydrocodone-Acetaminophen 1 Tablet (of 10-325 mg) Oral four times a day PRN, Hydroxyurea 1 Tablet (of 500 mg) Oral daily, Lyrica 2 Capsule (of 200 mg) Oral b.i.d., Methadone HCl 2 Tablet (of 10 mg) Oral t.i.d., MiraLax Powder Oral PRN, Omeprazole 1 (20 mg) Capsule Delayed Release Oral daily, PARoxetine HCl 1 Tablet (of 40 mg) Oral daily, SEROquel 1 Tablet (of 50 mg) Oral daily, Zolpidem Tartrate 1 Tablet (of 10 mg) Oral at bedtime Allergies: Citalopram Hydrobromide and Sertraline HCl. Review of Systems: Review of Systems is not available for this patient. Vital Signs: Performed on May 17, 2021 11:33 Height - 70.00 in Weight - 199.8 lbs (HIGH) BSA - 2.09 sq.m BMI - 28.67 Temperature - 98.2 F (LOW) Pulse - 90 /min Respiration - 18 /min BP - 159/83 mm(hg) (HIGH) O2 Sat - 97 % Pain - 5 Fatigue - 4 Performance Status: 0 - Fully active, able to carry on all predisease activities without restrictions. (ECOG) Physical Examination: ENMT - No mouth sores, no thrush, no jaundice, Respiratory - Lungs are clear to auscultation, Cardiovascular - Regular rate and rhythm of heart, Abdomen - Soft, bowel sounds present, Extremities - No visible edema or rash. Lab/Imaging: Most recent lab results are not available for this patient. Impression: Essential thrombocythemia confirmed by molecular testing done on May 29, 2020 which showed presence of SHAUNA R exon 9 mutation, mutation of this type or associated with essential thrombocythemia and primary myelofibrosis And no mutation was detected in codon 617 of Roxanne 2, thus ruled out. h/o persistent thrombocytosis and mild splenomegaly. 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 He has underlying testosterone deficiency, depression, severe chronic lower back pain requiring spinal cord stimulator implantation and back surgeries. .Polycythemia probably due to testosterone supplement, or underlying MPD , workup done in the past for myeloproliferative disorder because of thrombocytosis was inconclusive Bone marrow done on 07/16/2017 showed 100% cellularity with significant megakaryocyte proliferation and dyspoiesis. RBC precursors with some dyspoiesis noted including bi nucleated precursors and some nuclear/cytoplasmic dyssynchrony. No abnormal increase in blast cells. Flow cytometry showed no monocytic B-cell or aberrant T-cell population detected. Bone marrow fish for MDS no MDS related abnormality noted Bone marrow fish CML panel BCR/ABL fusion not detected Bone marrow chromosomal analysis no abnormality seen Started on hydroxyurea 500 mg daily on 10/29/2017 for progressive thrombocytosis and persistent polycythemia.Good response to the treatment, hydroxyurea dose changed to 500 mg/ d by mouth 5 days / week on 11/16/2017, increased to 500 mg by mouth daily on 11/09/2019 Plan: Discussed with patient regarding his labs white blood count 5.7 hemoglobin 13.6 hematocrit 43.4 platelets 429,000 Clinically, patient doing well with no new signs symptom, lab work-up is in desirable range, on hydroxyurea 1000 mg Thursday and Thursday and 500 mg on remaining days, tolerating well, will continue with same dose and he will return to clinic in 2 months with CBC patient was advised to maintain hydration Signed By: Clif Krause M.D. <<Signature on File>>
== END 2021-05-17 10:03 | disposition home or self-care (01) ==
LOC: ONCMED 10:06
PROVIDERS: PCP Internal Medicine; Visit Provider Internal Medicine Hematology & Oncology
DX: D69.3 Immune thrombocytopenic purpura (principal); D75.81 Myelofibrosis; E29.1 Testicular hypofunction; F32.9 Major depressive disorder, single episode, unspecified; Z79.899 Other long term (current) drug therapy; Z79.82 Long term (current) use of aspirin
CPT/HCPCS: 36415; 85025; 99214

== ENCOUNTER → 2021-05-24 15:27 | Outpatient (BNVA) | payer MEDICARE, SELFPAY | PROVIDERS: PCP Internal Medicine; Visit Provider Podiatrist Foot & Ankle Surgery | DX: M19.071 Primary osteoarthritis, right ankle and foot (principal); M10.9 Gout, unspecified; M79.671 Pain in right foot | CPT/HCPCS: 73630 ==

== ENCOUNTER → 2021-05-30 09:05 | Outpatient (BNVA) | payer MEDICARE, SELFPAY | PROVIDERS: PCP Internal Medicine; Visit Provider Nurse Practitioner | DX: G89.29 Other chronic pain (principal); M54.5 Low back pain; G47.00 Insomnia, unspecified; Z96.89 Presence of other specified functional implants; Z79.891 Long term (current) use of opiate analgesic | CPT/HCPCS: 99212; 99213 ==

== ENCOUNTER 2021-07-26 08:25 | Outpatient (CLI) | payer MEDICARE, SELFPAY ==
[2021-07-26 08:50] LABS: Basophils % 0.7 %; Eosinophils # 0.1 10^3/uL (0.0-0.8); Eosinophils % 1.8 %; Hematocrit 42.4 % (42.0-52.0); Hemoglobin 13.5 g/dL (11.7-16.6); Lymphocytes # 0.9 10^3/uL (0.8-4.8); Lymphocytes % 19.5 %; Mean Corpuscular HGB Conc 31.8 g/dL (30.0-36.0); Mean Corpuscular Hemoglobin 29.5 pg (28.0-34.0); Mean Corpuscular Volume 92.8 fl (80-94); Mean Platelet Volume 10.2 fL (7.4-10.4); Monocytes # 0.5 10^3/uL (0.2-0.9); Monocytes % 10.2 %; Neutrophils # 2.95 10^3/uL (1.8-7.7); Neutrophils % 67.1 %; Nucleated Red Blood Cells % 0.5 %; Platelet Count 365 10^3/cmm (130-400); Red Blood Count 4.57 10^6/uL (4.1-5.3); Red Cell Distribution Width 18.7 % (12.1-15.1); White Blood Count 4.4 10^3/uL (4.0-10.0)
--- NOTE | 2021-07-28 18:16 | ONC FU_ITS ---
Dr. Krause follow up note Patient: Bijan Eagle Unit #: [id number]: [id number] Dicatated By: Clif Krause M.D.Date of Visit:Jul 26, 2021 Onc Med Follow-up/Prog Note History of Present Illness: This is a 51 year old man with an extensive history of intractable chronic lower back pain, requiring multiple surgery including thoracic spinal cord stimulator implantation and laminectomy on 10/09/14 for spinal stenosis. The patient has chronic long-term opiate use. He also has a history of testosterone deficiency in the 2010. The patient suffers from depression. On routine laboratory analysis from 04/2415 his laboratory analysis revealed platelets of 654,000, and a repeat one week later on 05/09/15 increased to 717,000. He had adequate WBC and hemoglobin levels. His TSH measured 0.48 testosterone 218. The patient was first seen on 06/07/2015. Repeat laboratory analysis remained elevated platelets at 649. Further workup failed to find any evidence of reactive thrombocytosis. LDH 152, ESR 4, ferritin 16, but iron saturation 32%. He denied history of smoking. He had mild splenomegaly by CT imaging in June 2015. He denies history of bleeding, except prolonged bleeding with extensive mandibular surgery. He has uncomplicated molar tooth removal later on. He has no recent bleeding. No history of thrombosis. Bone marrow biopsy in June 2015 revealed hypercellular bone marrow at 90-100% cellularity, with significant megakaryocyte hyperplasia but also with significant dyspoiesis. About 5% of red cell precursors had dyspoiesis as well. Granulocytes were mature and normal in numbers. Flow cytometry and FISH panel for MDS unrevealing. Conventional cytogenetics unrevealing. Reticulin stain not increased. Absent iron storage was noted. Repeat iron studies with iron saturation 12%, ferritin 19. Further clonal analysis with BCR ABL, roxanne 2, roxanne 2 exon 12, MPL were completely unrevealing. Overlap of MDS/MPD was suspected. He began on oral iron supplementation, but despite of normalized iron panel, he had not developed erythrocytosis. Pure MPD with polycythemia rubra vera or essential thrombocythemia was felt to be unlikely.On hydroxyurea 500 mg 5 days a week Increased to 500 mg by mouth daily on 11/09/2019 And still taking testosterone supplements 1 mL every 3 weeks as per his PMDs recommendation Molecular testing done for myeloproliferative disorder on May 29, 2020 showed CA LR exon 9 mutation detected, mutations of this type are associated with essential thrombocythemia and primary myelofibrosis and no mutation was detected in codon 617 of Roxanne 2 On hydroxyurea 500 mg p.o. daily, Hydroxyurea dose increased to 1000 mg on Thursday and Thursday while continue with 500 mg daily on remaining days on April 09, 2021 because of persistent thrombocytosis Came for follow-up, denies any specific complaints, no fever chills, no nausea or vomiting, no diarrhea constipation, no headaches blurred vision or double vision, no melena hematochezia, no jaundice, no shortness of breath or chest pain, tolerating hydroxyurea well otherwise Medications: Aspirin 1 (81 mg) Tablet, enteric coated Oral daily, BuPROPion HCl ER (XL) 1 (450 mg) Tablet SR 24 HR Oral daily, hydroCHLOROthiazide (25 mg) Tablet Oral daily, Hydrocodone-Acetaminophen 1 Tablet (of 10-325 mg) Oral four times a day PRN, Hydroxyurea 1 Tablet (of 500 mg) Oral daily, Lyrica 2 Capsule (of 200 mg) Oral b.i.d., Methadone HCl 2 Tablet (of 10 mg) Oral t.i.d., MiraLax Powder Oral PRN, Omeprazole 1 (20 mg) Capsule Delayed Release Oral daily, PARoxetine HCl 1 Tablet (of 40 mg) Oral daily, SEROquel 1 Tablet (of 50 mg) Oral daily, Zolpidem Tartrate 1 Tablet (of 10 mg) Oral at bedtime Allergies: Citalopram Hydrobromide and Sertraline HCl. Review of Systems: Review of Systems is not available for this patient. Vital Signs: Performed on Jul 26, 2021 12:26 Height - 70.00 in Weight - 196.2 lbs (LOW) BSA - 2.07 sq.m BMI - 28.15 Temperature - 97.9 F (LOW) Pulse - 85 /min Respiration - 18 /min BP - 157/86 mm(hg) (HIGH) O2 Sat - 97 % Pain - 4 Fatigue - 8 Performance Status: 0 - Fully active, able to carry on all predisease activities without restrictions. (ECOG) Physical Examination: ENMT - No mouth sores, no thrush, no jaundice, Respiratory - Lungs are clear to auscultation, Cardiovascular - Regular rate and rhythm of heart, Abdomen - Soft, bowel sounds present, Extremities - No visible edema. Lab/Imaging: Most recent lab results are not available for this patient. Impression: Essential thrombocythemia confirmed by molecular testing done on May 29, 2020 which showed presence of SHAUNA R exon 9 mutation, mutation of this type or associated with essential thrombocythemia and primary myelofibrosis And no mutation was detected in codon 617 of Roxanne 2, thus ruled out. h/o persistent thrombocytosis and mild splenomegaly. 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 He has underlying testosterone deficiency, depression, severe chronic lower back pain requiring spinal cord stimulator implantation and back surgeries. .Polycythemia probably due to testosterone supplement, or underlying MPD , workup done in the past for myeloproliferative disorder because of thrombocytosis was inconclusive Bone marrow done on 07/16/2017 showed 100% cellularity with significant megakaryocyte proliferation and dyspoiesis. RBC precursors with some dyspoiesis noted including bi nucleated precursors and some nuclear/cytoplasmic dyssynchrony. No abnormal increase in blast cells. Flow cytometry showed no monocytic B-cell or aberrant T-cell population detected. Bone marrow fish for MDS no MDS related abnormality noted Bone marrow fish CML panel BCR/ABL fusion not detected Bone marrow chromosomal analysis no abnormality seen Started on hydroxyurea 500 mg daily on 10/29/2017 for progressive thrombocytosis and persistent polycythemia.Good response to the treatment, hydroxyurea dose changed to 500 mg/ d by mouth 5 days / week on 11/16/2017, increased to 500 mg by mouth daily on 11/09/2019 Plan: Discussed with patient regarding his labs white blood count 4.4 hemoglobin 13.5 hematocrit 42.4 compared to 43.4 previously platelets 365,000 Clinically, patient doing well with no new signs symptoms, tolerating hydroxyurea 500 mg daily except on Thursday and Thursday when he takes 1000 mg. We will continue with same and return to clinic in 3 months with CBC Signed By: Clif Krause M.D. <<Signature on File>>
== END 2021-07-26 08:26 | disposition home or self-care (01) ==
LOC: ONCMED 08:26
PROVIDERS: PCP Internal Medicine; Visit Provider Internal Medicine Hematology & Oncology
DX: D69.3 Immune thrombocytopenic purpura (principal); D75.838 Other thrombocytosis; R16.1 Splenomegaly, not elsewhere classified; E29.1 Testicular hypofunction; F32.9 Major depressive disorder, single episode, unspecified; M54.50 Low back pain, unspecified; G89.29 Other chronic pain; D75.1 Secondary polycythemia; Z79.899 Other long term (current) drug therapy
CPT/HCPCS: 36415; 85025; 99214

== ENCOUNTER → 2021-07-31 08:22 | Outpatient (BNVA) | payer MEDICARE, SELFPAY | PROVIDERS: PCP Internal Medicine; Visit Provider Anesthesiology | DX: G89.29 Other chronic pain (principal); M54.50 Low back pain, unspecified; Z96.89 Presence of other specified functional implants; G47.00 Insomnia, unspecified; Z79.891 Long term (current) use of opiate analgesic | CPT/HCPCS: 99213 ==

== ENCOUNTER → 2021-08-07 08:42 | Outpatient (BNVA) | payer MEDICARE, SELFPAY | PROVIDERS: PCP Internal Medicine; Visit Provider Nurse Practitioner | DX: F33.1 Major depressive disorder, recurrent, moderate (principal); F41.1 Generalized anxiety disorder | CPT/HCPCS: 99214 ==

== ENCOUNTER → 2021-10-02 09:58 | Outpatient (BNVA) | payer MEDICARE, SELFPAY | PROVIDERS: PCP Internal Medicine; Visit Provider Anesthesiology | DX: G89.29 Other chronic pain (principal); M54.50 Low back pain, unspecified; G47.00 Insomnia, unspecified; Z79.891 Long term (current) use of opiate analgesic | CPT/HCPCS: 99213 ==

== ENCOUNTER 2021-10-25 09:29 | Outpatient (CLI) | payer MEDICARE, SELFPAY ==
[2021-10-25 09:55] LABS: Basophils # 0.1 10^3/uL (0.0-0.1); Eosinophils # 0.1 10^3/uL (0.0-0.8); Eosinophils % 2.1 %; Hematocrit 38.2 % (42.0-52.0); Hemoglobin 11.5 g/dL (11.7-16.6); Lymphocytes # 0.9 10^3/uL (0.8-4.8); Mean Corpuscular HGB Conc 30.1 g/dL (30.0-36.0); Mean Corpuscular Hemoglobin 28.8 pg (28.0-34.0); Mean Corpuscular Volume 95.5 fl (80-94); Mean Platelet Volume 10.4 fL (7.4-10.4); Monocytes # 0.5 10^3/uL (0.2-0.9); Monocytes % 8.5 %; Neutrophils # 4.46 10^3/uL (1.8-7.7); Neutrophils % 72.6 %; Nucleated Red Blood Cells # 0.1 /100WBC; Platelet Count 484 10^3/cmm (130-400); Red Cell Distribution Width 17.2 % (12.1-15.1); White Blood Count 6.1 10^3/uL (4.0-10.0)
--- NOTE | 2021-10-25 11:30 | ONC FU_ITS ---
Danelle Weiss Progress Note Patient: Bijan Eagle Unit #: [id number]: 1970 Dicatated By: Danelle Weiss N.P.Date of Visit:Oct 25, 2021 Onc MED Follow-up/Prog Note Chief Complaint: persistent thrombocytosis, MDS/MPD History of Present Illness: This is a 51 year old man with an extensive history of intractable chronic lower back pain, requiring multiple surgery including thoracic spinal cord stimulator implantation and laminectomy on 10/09/14 for spinal stenosis. The patient has chronic long-term opiate use. He also has a history of testosterone deficiency in the 2010. The patient suffers from depression. On routine laboratory analysis from 04/2415 his laboratory analysis revealed platelets of 654,000, and a repeat one week later on 05/09/15 increased to 717,000. He had adequate WBC and hemoglobin levels. His TSH measured 0.48 testosterone 218. The patient was first seen on 06/07/2015. Repeat laboratory analysis remained elevated platelets at 649. Further workup failed to find any evidence of reactive thrombocytosis. LDH 152, ESR 4, ferritin 16, but iron saturation 32%. He denied history of smoking. He had mild splenomegaly by CT imaging in June 2015. He denies history of bleeding, except prolonged bleeding with extensive mandibular surgery. He has uncomplicated molar tooth removal later on. He has no recent bleeding. No history of thrombosis. Bone marrow biopsy in June 2015 revealed hypercellular bone marrow at 90-100% cellularity, with significant megakaryocyte hyperplasia but also with significant dyspoiesis. About 5% of red cell precursors had dyspoiesis as well. Granulocytes were mature and normal in numbers. Flow cytometry and FISH panel for MDS unrevealing. Conventional cytogenetics unrevealing. Reticulin stain not increased. Absent iron storage was noted. Repeat iron studies with iron saturation 12%, ferritin 19. Further clonal analysis with BCR ABL, roxanne 2, roxanne 2 exon 12, MPL were completely unrevealing. Overlap of MDS/MPD was suspected. He began on oral iron supplementation, but despite of normalized iron panel, he had not developed erythrocytosis. Pure MPD with polycythemia rubra vera or essential thrombocythemia was felt to be unlikely.On hydroxyurea 500 mg 5 days a week Increased to 500 mg by mouth daily on 11/09/2019 And still taking testosterone supplements 1 mL every 3 weeks as per his PMDs recommendation Molecular testing done for myeloproliferative disorder on May 29, 2020 showed CA LR exon 9 mutation detected, mutations of this type are associated with essential thrombocythemia and primary myelofibrosis and no mutation was detected in codon 617 of Roxanne 2 On hydroxyurea 500 mg p.o. daily, Hydroxyurea dose increased to 1000 mg on Thursday and Thursday while continue with 500 mg daily on remaining days on April 09, 2021 because of persistent thrombocytosis Came for follow-up, denies any specific complaints, no fever chills, no nausea or vomiting, no diarrhea constipation, no headaches blurred vision or double vision, no melena hematochezia, no jaundice, no shortness of breath or chest pain, tolerating hydroxyurea well otherwise. Tolerating hydroxyurea at 1000mg on Thursday and Thursday and 500mg daily on remaining days. Review Of Symptoms: See above Past Medical History: Chronic back painm Depression Hypothyroidism Spinal stenosis Past Surgical History: Laminectomy Covid vaccine # 2 moderna in 2020 Covid vaccine # 1 in 2020 Flu vaccine in 2019 - left deltoid Implanted nerve stimulator in 2014 Allergies: Citalopram Hydrobromide and Sertraline HCl. Medications: Aspirin 1 (81 mg) Tablet, enteric coated Oral daily BuPROPion HCl ER (XL) 1 (450 mg) Tablet SR 24 HR Oral daily hydroCHLOROthiazide (25 mg) Tablet Oral daily Hydrocodone-Acetaminophen 1 Tablet (of 10-325 mg) Oral four times a day PRN Hydroxyurea 1 Tablet (of 500 mg) Oral daily Lyrica 2 Capsule (of 200 mg) Oral b.i.d. Methadone HCl 2 Tablet (of 10 mg) Oral t.i.d. MiraLax Powder Oral PRN Omeprazole 1 (20 mg) Capsule Delayed Release Oral daily PARoxetine HCl 1 Tablet (of 40 mg) Oral daily SEROquel 1 Tablet (of 50 mg) Oral daily Zolpidem Tartrate 1 Tablet (of 10 mg) Oral at bedtime Family History: Paternal family with history of IA. Social History: Mr. Eagle is and he is a disabled. Mr. Eagle has never smoked. He is an active drinker. Mr. Eagle reports the following support systems: lives with spouse, significant other, family, or friends, lives in own house, supportive family/friends willing to assist with needs, and adequate transportation available for expected visits. His diet consists of regular meals. He indicates his activity level as: daily activities. no desire to start smoking. Occasional alcohol use. Physical Examination: Performed on Oct 25, 2021 11:10: Height - 70.00 in, Weight - 208.2 lbs (HIGH), BSA - 2.12 sq.m, BMI - 29.87, Temperature - 97.9 F (LOW), Pulse - 78 /min, Respiration - 16 /min, BP - 152/74 mm(hg) (HIGH), O2 Sat - 97 %, Pain - 6, and Fatigue - 8. Performance Status: 0 - Fully active, able to carry on all predisease activities without restrictions. (ECOG) Constitutional Alert, cooperative, oriented. Mood and affect appropriate. Appears close to chronological age. Well nourished. Well developed. Head Normocephalic; no scars. Respiratory Lungs are clear to auscultation without rhonchi or wheezing. Cardiovascular Regular rate and rhythm of heart without murmurs, gallops or rubs. Abdomen Non-tender, non-distended, no masses, ascites or hepatosplenomegaly. Good bowel sounds. No guarding or rebound tenderness. Psychiatric Alert and oriented times three. Coherent speech. Verbalizes understanding of our discussions today. Laboratory: Test performed on Oct 25, 2021 09:44 WBC 6.1 10 3/uL RBC 4.00 10 6/uL HGB 11.5 g/dL HCT 38.2 % MCV 95.5 fl MCH 28.8 pg MCHC 30.1 g/dL RDW 17.2 % Platelet Count 484 10 3/cmm MPV 10.4 fL Neutrophils 4.46 10 3/uL Lymphocytes 0.9 10 3/uL Monocytes 0.5 10 3/uL Eosinophils 0.1 10 3/uL Basophils 0.1 10 3/uL Neutrophil % 72.6 % Lymphocyte % 14.0 % Monocyte % 8.5 % Eosinophil % 2.1 % Basophils % 1.0 % NRBC % 1.0 % Impression: Essential thrombocythemia confirmed by molecular testing done on May 29, 2020 which showed presence of SHAUNA R exon 9 mutation, mutation of this type or associated with essential thrombocythemia and primary myelofibrosis And no mutation was detected in codon 617 of Roxanne 2, thus ruled out. h/o persistent thrombocytosis and mild splenomegaly. 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 He has underlying testosterone deficiency, depression, severe chronic lower back pain requiring spinal cord stimulator implantation and back surgeries. .Polycythemia probably due to testosterone supplement, or underlying MPD , workup done in the past for myeloproliferative disorder because of thrombocytosis was inconclusive Bone marrow done on 07/16/2017 showed 100% cellularity with significant megakaryocyte proliferation and dyspoiesis. RBC precursors with some dyspoiesis noted including bi nucleated precursors and some nuclear/cytoplasmic dyssynchrony. No abnormal increase in blast cells. Flow cytometry showed no monocytic B-cell or aberrant T-cell population detected. Bone marrow fish for MDS no MDS related abnormality noted Bone marrow fish CML panel BCR/ABL fusion not detected Bone marrow chromosomal analysis no abnormality seen Started on hydroxyurea 500 mg daily on 10/29/2017 for progressive thrombocytosis and persistent polycythemia.Good response to the treatment, hydroxyurea dose changed to 500 mg/ d by mouth 5 days / week on 11/16/2017, increased to 500 mg by mouth daily on 11/09/2019 Plan: Labs were discussed with patient with WBC is 1, hemoglobin 11.5, hematocrit 38.2, platelets 484,000. Patient states that he is tolerating hydroxyurea well at 1000 mg p.o. on Thursday and Thursday and he takes 500 mg daily on all other days. Hemoglobin hematocrit is slightly lower today on labs. Recheck labs in 1 month to reevaluate hemoglobin. Signed By: Danelle Weiss NAllison <<Signature on File>>
== END 2021-10-25 09:30 | disposition home or self-care (01) ==
PROVIDERS: PCP Internal Medicine; Visit Provider Nurse Practitioner Family
DX: D69.3 Immune thrombocytopenic purpura (principal); F32.A Depression, unspecified; E03.9 Hypothyroidism, unspecified; Z79.899 Other long term (current) drug therapy
CPT/HCPCS: 36415; 85025; 99214

== ENCOUNTER → 2021-11-05 09:39 | Outpatient (BNVA) | payer MEDICARE, SELFPAY | PROVIDERS: PCP Internal Medicine; Visit Provider Nurse Practitioner | DX: F41.1 Generalized anxiety disorder (principal); F33.1 Major depressive disorder, recurrent, moderate | CPT/HCPCS: 99214 ==

== ENCOUNTER 2021-12-18 13:30 | Outpatient (CLI) | payer MEDICARE, SELFPAY ==
[2021-12-18 14:10] LABS: Basophils # 0.1 10^3/uL (0.0-0.1); Basophils % 0.9 %; Eosinophils # 0.1 10^3/uL (0.0-0.8); Eosinophils % 1.3 %; Hematocrit 41.6 % (42.0-52.0); Hemoglobin 12.9 g/dL (11.7-16.6); Lymphocytes % 15.5 %; Mean Corpuscular Hemoglobin 27.7 pg (28.0-34.0); Mean Corpuscular Volume 89.5 fl (80-94); Mean Platelet Volume 10.6 fL (7.4-10.4); Monocytes # 0.5 10^3/uL (0.2-0.9); Monocytes % 7.9 %; Neutrophils # 4.65 10^3/uL (1.8-7.7); Neutrophils % 73.6 %; Nucleated Red Blood Cells % 0.3 %; Platelet Count 551 10^3/cmm (130-400); Red Blood Count 4.65 10^6/uL (4.1-5.3); Red Cell Distribution Width 17.9 % (12.1-15.1); White Blood Count 6.3 10^3/uL (4.0-10.0)
--- NOTE | 2021-12-18 16:42 | ONC FU_ITS ---
Dr. Karuse follow up note Patient: Bijan Eagle Unit #: [id number]: 1970 Dicatated By: Clif Krause M.D.Date of Visit:Dec 18, 2021 Onc Med Follow-up/Prog Note History of Present Illness: This is a 51 year old man with an extensive history of intractable chronic lower back pain, requiring multiple surgery including thoracic spinal cord stimulator implantation and laminectomy on 10/09/14 for spinal stenosis. The patient has chronic long-term opiate use. He also has a history of testosterone deficiency in the 2010. The patient suffers from depression. On routine laboratory analysis from 04/2415 his laboratory analysis revealed platelets of 654,000, and a repeat one week later on 05/09/15 increased to 717,000. He had adequate WBC and hemoglobin levels. His TSH measured 0.48 testosterone 218. The patient was first seen on 06/07/2015. Repeat laboratory analysis remained elevated platelets at 649. Further workup failed to find any evidence of reactive thrombocytosis. LDH 152, ESR 4, ferritin 16, but iron saturation 32%. He denied history of smoking. He had mild splenomegaly by CT imaging in June 2015. He denies history of bleeding, except prolonged bleeding with extensive mandibular surgery. He has uncomplicated molar tooth removal later on. He has no recent bleeding. No history of thrombosis. Bone marrow biopsy in June 2015 revealed hypercellular bone marrow at 90-100% cellularity, with significant megakaryocyte hyperplasia but also with significant dyspoiesis. About 5% of red cell precursors had dyspoiesis as well. Granulocytes were mature and normal in numbers. Flow cytometry and FISH panel for MDS unrevealing. Conventional cytogenetics unrevealing. Reticulin stain not increased. Absent iron storage was noted. Repeat iron studies with iron saturation 12%, ferritin 19. Further clonal analysis with BCR ABL, roxanne 2, roxanne 2 exon 12, MPL were completely unrevealing. Overlap of MDS/MPD was suspected. He began on oral iron supplementation, but despite of normalized iron panel, he had not developed erythrocytosis. Pure MPD with polycythemia rubra vera or essential thrombocythemia was felt to be unlikely.On hydroxyurea 500 mg 5 days a week Increased to 500 mg by mouth daily on 11/09/2019 And still taking testosterone supplements 1 mL every 3 weeks as per his PMDs recommendation Molecular testing done for myeloproliferative disorder on May 29, 2020 showed CA LR exon 9 mutation detected, mutations of this type are associated with essential thrombocythemia and primary myelofibrosis and no mutation was detected in codon 617 of Roxanne 2 On hydroxyurea 500 mg p.o. daily, Hydroxyurea dose increased to 1000 mg on Thursday and Thursday while continue with 500 mg daily on remaining days on April 09, 2021 because of persistent thrombocytosis Came for follow-up, denies any specific complaints, no fever chills, no nausea or vomiting, no diarrhea or constipation, no headaches blurred vision or double vision, no chest pain or heaviness, tolerating hydroxyurea well Medications: Aspirin 1 (81 mg) Tablet, enteric coated Oral daily, BuPROPion HCl ER (XL) 1 (450 mg) Tablet SR 24 HR Oral daily, hydroCHLOROthiazide (25 mg) Tablet Oral daily, Hydrocodone-Acetaminophen 1 Tablet (of 10-325 mg) Oral four times a day PRN, Hydroxyurea 1 Tablet (of 500 mg) Oral daily, Lyrica 2 Capsule (of 200 mg) Oral b.i.d., Methadone HCl 1 Tablet (of 10 mg) Oral q 6 hours, MiraLax Powder Oral PRN, Omeprazole 1 (20 mg) Capsule Delayed Release Oral daily, PARoxetine HCl 1 Tablet (of 40 mg) Oral daily, SEROquel 1 Tablet (of 50 mg) Oral daily, Zolpidem Tartrate 1 Tablet (of 10 mg) Oral at bedtime Allergies: Citalopram Hydrobromide and Sertraline HCl. Review of Systems: Review of Systems is not available for this patient. Vital Signs: Performed on Dec 18, 2021 15:45 Height - 70.00 in Weight - 197.6 lbs (LOW) BSA - 2.08 sq.m BMI - 28.35 Temperature - 98.7 F Pulse - 89 /min Respiration - 16 /min BP - 154/93 mm(hg) (HIGH) O2 Sat - 99 % Pain - 5 Fatigue - 6 Performance Status: 0 - Fully active, able to carry on all predisease activities without restrictions. (ECOG) Physical Examination: ENMT - No mouth sores, no thrush, no jaundice, Respiratory - Lungs are clear to auscultation, Cardiovascular - Regular rate and rhythm of heart, Abdomen - Soft, bowel sounds present, Extremities - No visible edema. Lab/Imaging: Test performed on Oct 25, 2021 09:44 WBC 6.1 10 3/uL RBC 4.00 10 6/uL HGB 11.5 g/dL HCT 38.2 % MCV 95.5 fl MCH 28.8 pg MCHC 30.1 g/dL RDW 17.2 % Platelet Count 484 10 3/cmm MPV 10.4 fL Neutrophils 4.46 10 3/uL Lymphocytes 0.9 10 3/uL Monocytes 0.5 10 3/uL Eosinophils 0.1 10 3/uL Basophils 0.1 10 3/uL Neutrophil % 72.6 % Lymphocyte % 14.0 % Monocyte % 8.5 % Eosinophil % 2.1 % Basophils % 1.0 % NRBC % 1.0 % Impression: Essential thrombocythemia confirmed by molecular testing done on May 29, 2020 which showed presence of SHAUNA R exon 9 mutation, mutation of this type or associated with essential thrombocythemia and primary myelofibrosis And no mutation was detected in codon 617 of Roxanne 2, thus ruled out. h/o persistent thrombocytosis and mild splenomegaly. 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 He has underlying testosterone deficiency, depression, severe chronic lower back pain requiring spinal cord stimulator implantation and back surgeries. .Polycythemia probably due to testosterone supplement, or underlying MPD , workup done in the past for myeloproliferative disorder because of thrombocytosis was inconclusive Bone marrow done on 07/16/2017 showed 100% cellularity with significant megakaryocyte proliferation and dyspoiesis. RBC precursors with some dyspoiesis noted including bi nucleated precursors and some nuclear/cytoplasmic dyssynchrony. No abnormal increase in blast cells. Flow cytometry showed no monocytic B-cell or aberrant T-cell population detected. Bone marrow fish for MDS no MDS related abnormality noted Bone marrow fish CML panel BCR/ABL fusion not detected Bone marrow chromosomal analysis no abnormality seen Started on hydroxyurea 500 mg daily on 10/29/2017 for progressive thrombocytosis and persistent polycythemia.Good response to the treatment, hydroxyurea dose changed to 500 mg/ d by mouth 5 days / week on 11/16/2017, increased to 500 mg by mouth daily on 11/09/2019 Plan: Discussed with patient regarding his labs white blood count 6.3 hemoglobin 12.9 hematocrit 41.6 platelets 551,000 Clinically, patient doing well with no new signs symptoms his lab work-up is in desirable range, with mild thrombocytosis, his follow-up labs shows improvement in his mild anemia, will continue with hydroxyurea 500 mg daily except on Thursday and Thursday he will take 1000 mg. Return to clinic in 3 months with CBC Signed By: Clif Krause M.D. <<Signature on File>>
== END 2021-12-18 13:31 | disposition home or self-care (01) ==
LOC: ONCMED 13:33
PROVIDERS: PCP Internal Medicine; Visit Provider Internal Medicine Hematology & Oncology
DX: D47.3 Essential (hemorrhagic) thrombocythemia (principal); R16.1 Splenomegaly, not elsewhere classified; E29.1 Testicular hypofunction; F32.A Depression, unspecified; Z79.899 Other long term (current) drug therapy
CPT/HCPCS: 36415; 85025; 99214

== ENCOUNTER → 2022-01-28 10:40 | Outpatient (BNVA) | payer MEDICARE, SELFPAY | PROVIDERS: PCP Internal Medicine; Visit Provider Nurse Practitioner | DX: F33.1 Major depressive disorder, recurrent, moderate (principal); F41.1 Generalized anxiety disorder | CPT/HCPCS: 99214 ==

== ENCOUNTER 2022-03-21 09:28 | Oncology outpatient (recurring) (ONCR) | payer MEDICARE, SELFPAY ==
[2022-03-21 09:46] LABS: Basophils % 0.4 %; Eosinophils # 0.1 10^3/uL (0.0-0.8); Eosinophils % 1.1 %; Hematocrit 41.7 % (42.0-52.0); Hemoglobin 12.8 g/dL (11.7-16.6); Lymphocytes # 0.9 10^3/uL (0.8-4.8); Lymphocytes % 11.7 %; Mean Corpuscular HGB Conc 30.7 g/dL (30.0-36.0); Mean Corpuscular Hemoglobin 28.1 pg (28.0-34.0); Mean Corpuscular Volume 91.6 fl (80-94); Mean Platelet Volume 10.4 fL (7.4-10.4); Monocytes # 0.7 10^3/uL (0.2-0.9); Neutrophils # 5.53 10^3/uL (1.8-7.7); Neutrophils % 76.1 %; Nucleated Red Blood Cells % 0.3 %; Platelet Count 392 10^3/cmm (130-400); Red Blood Count 4.55 10^6/uL (4.1-5.3); Red Cell Distribution Width 20.1 % (12.1-15.1); White Blood Count 7.3 10^3/uL (4.0-10.0)
== END 2022-04-06 23:59 | disposition home or self-care (01) ==
PROVIDERS: PCP Internal Medicine; Visit Provider Internal Medicine Hematology & Oncology
DX: D47.3 Essential (hemorrhagic) thrombocythemia (principal); D75.1 Secondary polycythemia; Z79.899 Other long term (current) drug therapy
CPT/HCPCS: 36415; 85025; 99214

== ENCOUNTER → 2022-05-20 08:06 | Outpatient (BNVA) | payer MEDICARE, SELFPAY | PROVIDERS: PCP Internal Medicine; Referring Provider Orthopaedic Surgery; Visit Provider Specialist | DX: G56.02 Carpal tunnel syndrome, left upper limb (principal) | CPT/HCPCS: 95908; 95909 ==

== ENCOUNTER → 2022-06-26 13:06 | Outpatient (BNVA) | payer MEDICARE, SELFPAY | PROVIDERS: PCP Internal Medicine; Referring Provider Orthopaedic Surgery; Visit Provider Specialist | DX: M54.12 Radiculopathy, cervical region (principal); R23.8 Other skin changes; G89.29 Other chronic pain; M54.50 Low back pain, unspecified; D75.1 Secondary polycythemia; Z79.891 Long term (current) use of opiate analgesic; Z96.82 Presence of neurostimulator | CPT/HCPCS: 95860; 99202; 99203 ==

== ENCOUNTER 2022-07-03 13:28 | Oncology outpatient (recurring) (ONCR) | payer MEDICARE, SELFPAY ==
[2022-07-03 14:04] LABS: Basophils # 0.1 10^3/uL (0.0-0.1); Eosinophils # 0.1 10^3/uL (0.0-0.8); Eosinophils % 1.2 %; Hematocrit 40.3 % (42.0-52.0); Hemoglobin 12.6 g/dL (11.7-16.6); Lymphocytes # 0.9 10^3/uL (0.8-4.8); Lymphocytes % 18.1 %; Mean Corpuscular HGB Conc 31.3 g/dL (30.0-36.0); Mean Corpuscular Hemoglobin 29.6 pg (28.0-34.0); Mean Corpuscular Volume 94.6 fl (80-94); Monocytes # 0.5 10^3/uL (0.2-0.9); Monocytes % 10.2 %; Neutrophils # 3.58 10^3/uL (1.8-7.7); Neutrophils % 68.9 %; Nucleated Red Blood Cells # 0.1 /100WBC; Platelet Count 370 10^3/cmm (130-400); Red Blood Count 4.26 10^6/uL (4.1-5.3); Red Cell Distribution Width 18.4 % (12.1-15.1); White Blood Count 5.2 10^3/uL (4.0-10.0)
[2022-07-03 14:34] LABS: Alanine Aminotransferase 17 U/L (0-41); Albumin Level 4.3 g/dL (3.5-5.2); Alkaline Phosphatase 56 U/L (40-130); Anion Gap 11.6 (5-19); Aspartate Amino Transferase 16 U/L (0-40); Blood Urea Nitrogen 14 mg/dL (6-20); Calcium 9.1 mg/dL (8.5-10.5); Carbon Dioxide 31 mmol/L (22-29); Chloride 98 mmol/L (98-107); Glomerular Filtration Rate 77.9 mL/min (90-130); Glucose 89 mg/dL (65-115); Osmolality Calculated 284 mOsm/kg (285-295); Potassium 3.6 mmol/L (3.5-5.1); Sodium 137 mmol/L (136-145); Total Bilirubin 0.5 mg/dL (0.15-1.2); Total Protein 6.3 g/dL (6.6-8.7)
== END 2022-07-07 23:59 | disposition home or self-care (01) ==
PROVIDERS: Nurse Practitioner Family; PCP Internal Medicine; Visit Provider Internal Medicine Hematology & Oncology
DX: D47.3 Essential (hemorrhagic) thrombocythemia (principal); D75.1 Secondary polycythemia; D46.Z Other myelodysplastic syndromes; L27.1 Localized skin eruption due to drugs and medicaments taken internally; T45.1X5A Adverse effect of antineoplastic and immunosuppressive drugs, initial encounter; Z79.899 Other long term (current) drug therapy
CPT/HCPCS: 36415; 80053; 85025; 99214

== ENCOUNTER 2022-07-17 12:54 | Oncology outpatient (recurring) (ONCR) | payer MEDICARE, SELFPAY ==
[2022-07-17 12:07] LABS: Basophils % 0.4 %; Eosinophils # 0.1 10^3/uL (0.0-0.8); Eosinophils % 1.6 %; Hematocrit 42.3 % (42.0-52.0); Lymphocytes # 0.9 10^3/uL (0.8-4.8); Lymphocytes % 13.2 %; Mean Corpuscular HGB Conc 30.7 g/dL (30.0-36.0); Mean Corpuscular Hemoglobin 29.4 pg (28.0-34.0); Mean Corpuscular Volume 95.7 fl (80-94); Mean Platelet Volume 10.9 fL (7.4-10.4); Monocytes # 0.7 10^3/uL (0.2-0.9); Monocytes % 10.3 %; Neutrophils # 5.06 10^3/uL (1.8-7.7); Neutrophils % 73.3 %; Nucleated Red Blood Cells # 0.1 /100WBC; Platelet Count 495 10^3/cmm (130-400); Red Blood Count 4.42 10^6/uL (4.1-5.3); Red Cell Distribution Width 17.8 % (12.1-15.1); White Blood Count 6.9 10^3/uL (4.0-10.0)
== END 2022-08-06 23:59 | disposition home or self-care (01) ==
PROVIDERS: PCP Internal Medicine; Visit Provider Internal Medicine Hematology & Oncology
DX: D47.3 Essential (hemorrhagic) thrombocythemia (principal); Z79.899 Other long term (current) drug therapy
CPT/HCPCS: 85025; 99214

== ENCOUNTER 2022-08-22 09:19 | Oncology outpatient (recurring) (ONCR) | payer MEDICARE, SELFPAY ==
[2022-08-22 09:40] LABS: Basophils # 0.1 10^3/uL (0.0-0.1); Basophils % 0.6 %; Eosinophils # 0.1 10^3/uL (0.0-0.8); Eosinophils % 1.3 %; Hematocrit 43.9 % (42.0-52.0); Hemoglobin 13.6 g/dL (11.7-16.6); Lymphocytes # 1.1 10^3/uL (0.8-4.8); Lymphocytes % 12.5 %; Mean Corpuscular Hemoglobin 27.8 pg (28.0-34.0); Mean Corpuscular Volume 89.8 fl (80-94); Mean Platelet Volume 10.2 fL (7.4-10.4); Monocytes # 0.8 10^3/uL (0.2-0.9); Monocytes % 9.7 %; Neutrophils # 6.44 10^3/uL (1.8-7.7); Neutrophils % 73.9 %; Nucleated Red Blood Cells # 0.1 /100WBC; Nucleated Red Blood Cells % 0.7 %; Platelet Count 574 10^3/cmm (130-400); Red Blood Count 4.89 10^6/uL (4.1-5.3); Red Cell Distribution Width 18.3 % (12.1-15.1); White Blood Count 8.7 10^3/uL (4.0-10.0)
== END 2022-09-06 23:59 | disposition home or self-care (01) ==
PROVIDERS: PCP Internal Medicine; Visit Provider Internal Medicine Hematology & Oncology
DX: D47.3 Essential (hemorrhagic) thrombocythemia (principal); D75.839 Thrombocytosis, unspecified; Z79.899 Other long term (current) drug therapy
CPT/HCPCS: 85025; 99214

== ENCOUNTER 2022-09-26 09:08 | Oncology outpatient (recurring) (ONCR) | payer MEDICARE, SELFPAY ==
[2022-09-26 09:52] LABS: Basophils # 0.1 10^3/uL (0.0-0.1); Basophils % 0.8 %; Eosinophils # 0.1 10^3/uL (0.0-0.8); Eosinophils % 1.2 %; Hematocrit 42.2 % (42.0-52.0); Lymphocytes # 0.8 10^3/uL (0.8-4.8); Lymphocytes % 12.9 %; Mean Corpuscular HGB Conc 30.8 g/dL (30.0-36.0); Mean Corpuscular Hemoglobin 27.1 pg (28.0-34.0); Mean Corpuscular Volume 88.1 fl (80-94); Mean Platelet Volume 10.5 fL (7.4-10.4); Monocytes # 0.6 10^3/uL (0.2-0.9); Monocytes % 9.1 %; Neutrophils # 4.83 10^3/uL (1.8-7.7); Neutrophils % 74.9 %; Nucleated Red Blood Cells # 0.1 /100WBC; Nucleated Red Blood Cells % 1.2 %; Platelet Count 421 10^3/cmm (130-400); Red Blood Count 4.79 10^6/uL (4.1-5.3); Red Cell Distribution Width 20.3 % (12.1-15.1); White Blood Count 6.5 10^3/uL (4.0-10.0)
== END 2022-10-07 23:59 | disposition home or self-care (01) ==
PROVIDERS: PCP Internal Medicine; Visit Provider Internal Medicine Hematology & Oncology
DX: D47.3 Essential (hemorrhagic) thrombocythemia (principal); D75.1 Secondary polycythemia; D75.839 Thrombocytosis, unspecified; Z79.899 Other long term (current) drug therapy
CPT/HCPCS: 36415; 85025; 99214

== ENCOUNTER → 2023-01-05 11:30 | Outpatient (BNVA) | payer MEDICARE, SELFPAY | PROVIDERS: PCP Internal Medicine; Visit Provider Nurse Practitioner | DX: F41.1 Generalized anxiety disorder (principal); F33.1 Major depressive disorder, recurrent, moderate; Z79.899 Other long term (current) drug therapy | CPT/HCPCS: 80061; 83036 ==

== ENCOUNTER 2023-01-26 09:57 | Oncology outpatient (recurring) (ONCR) | payer MEDICARE, SELFPAY ==
[2023-01-26 10:34] LABS: Basophils # 0.1 10^3/uL (0.0-0.1); Basophils % 0.8 %; Eosinophils # 0.1 10^3/uL (0.0-0.8); Eosinophils % 1.9 %; Hematocrit 43.8 % (42.0-52.0); Hemoglobin 13.1 g/dL (11.7-16.6); Lymphocytes % 15.9 %; Mean Corpuscular HGB Conc 29.9 g/dL (30.0-36.0); Mean Corpuscular Hemoglobin 26.6 pg (28.0-34.0); Mean Corpuscular Volume 88.8 fl (80-94); Mean Platelet Volume 10.9 fL (7.4-10.4); Monocytes # 0.8 10^3/uL (0.2-0.9); Monocytes % 12.3 %; Neutrophils # 4.31 10^3/uL (1.8-7.7); Nucleated Red Blood Cells # 0.1 /100WBC; Nucleated Red Blood Cells % 1.1 %; Platelet Count 465 10^3/cmm (130-400); Red Blood Count 4.93 10^6/uL (4.1-5.3); Red Cell Distribution Width 20.6 % (12.1-15.1); White Blood Count 6.3 10^3/uL (4.0-10.0)
== END 2023-02-04 23:59 | disposition home or self-care (01) ==
PROVIDERS: Nurse Practitioner Family; PCP Internal Medicine; Visit Provider Internal Medicine Hematology & Oncology
DX: D47.3 Essential (hemorrhagic) thrombocythemia (principal); Z79.899 Other long term (current) drug therapy; D75.839 Thrombocytosis, unspecified
CPT/HCPCS: 36415; 85025; 99213

== ENCOUNTER → 2023-04-20 09:44 | Outpatient (BNVA) | payer MEDICARE, SELFPAY | PROVIDERS: PCP Internal Medicine; Visit Provider Nurse Practitioner Family | DX: D69.6 Thrombocytopenia, unspecified (principal); L57.0 Actinic keratosis; L57.8 Other skin changes due to chronic exposure to nonionizing radiation; I87.2 Venous insufficiency (chronic) (peripheral); L82.1 Other seborrheic keratosis; R21 Rash and other nonspecific skin eruption | CPT/HCPCS: 17004; 99203 ==

== ENCOUNTER 2023-04-30 11:11 | Oncology outpatient (recurring) (ONCR) | payer MEDICARE, SELFPAY ==
[2023-04-30 11:16] VITALS: BP 149/87; PULSE 85; RESP 18; TEMP 37.3; O2SAT 98
[2023-04-30 11:31] LABS: Basophils % 0.6 %; Eosinophils # 0.1 10^3/uL (0.0-0.8); Eosinophils % 1.5 %; Hematocrit 41.6 % (37-53); Lymphocytes # 0.8 10^3/uL (0.8-4.8); Lymphocytes % 15.1 %; Mean Corpuscular HGB Conc 30.5 g/dL (30-55); Mean Corpuscular Hemoglobin 27.3 pg (27-33); Mean Corpuscular Volume 89.3 fl (82-101); Mean Platelet Volume 10.4 fL (7.4-10.4); Monocytes # 0.6 10^3/uL (0.2-0.9); Monocytes % 10.7 %; Neutrophils # 3.78 10^3/uL (1.8-7.7); Neutrophils % 71.2 %; Nucleated Red Blood Cells % 0.8 %; Platelet Count 515 10^3/cmm (157-399); Red Blood Count 4.66 10^6/uL (3.85-5.65); Red Cell Distribution Width 20.3 % (12.1-15.1); White Blood Count 5.31 10^3/uL (3.29-11.43)
== END 2023-05-07 23:59 | disposition home or self-care (01) ==
PROVIDERS: Nurse Practitioner Family; PCP Internal Medicine; Visit Provider Internal Medicine Medical Oncology
DX: D47.3 Essential (hemorrhagic) thrombocythemia (principal); Z79.899 Other long term (current) drug therapy
CPT/HCPCS: 36415; 85025; 99214

== ENCOUNTER 2023-05-27 12:12 | Oncology outpatient (recurring) (ONCR) | payer MEDICARE, SELFPAY ==
[2023-05-27 12:34] VITALS: BP 132/82; PULSE 81; RESP 16; TEMP 36.8; O2SAT 98
[2023-05-27 12:58] LABS: Basophils % 0.4 %; Eosinophils # 0.1 10^3/uL (0.0-0.8); Eosinophils % 1.1 %; Hematocrit 40.2 % (37-53); Lymphocytes # 0.8 10^3/uL (0.8-4.8); Mean Corpuscular HGB Conc 31.3 g/dL (30-55); Mean Corpuscular Hemoglobin 27.6 pg (27-33); Mean Corpuscular Volume 88.2 fl (82-101); Monocytes # 0.5 10^3/uL (0.2-0.9); Monocytes % 10.5 %; Neutrophils # 3.33 10^3/uL (1.8-7.7); Neutrophils % 69.9 %; Nucleated Red Blood Cells % 0.8 %; Platelet Count 307 10^3/cmm (157-399); Red Blood Count 4.56 10^6/uL (3.85-5.65); Red Cell Distribution Width 20.2 % (12.1-15.1); White Blood Count 4.76 10^3/uL (3.29-11.43)
[2023-05-27 13:02] LABS: Alanine Aminotransferase 12 U/L (0-41); Albumin Level 4.1 g/dL (3.5-5.2); Alkaline Phosphatase 57 U/L (40-130); Aspartate Amino Transferase 16 U/L (0-40); Blood Urea Nitrogen 11 mg/dL (6-20); Calcium 9.5 mg/dL (8.5-10.5); Carbon Dioxide 32 mmol/L (22-29); Chloride 103 mmol/L (98-107); Globulin 2.9 g/dL (1.3-4.6); Glomerular Filtration Rate 117.1 mL/min (90-130); Glucose 98 mg/dL (65-115); Osmolality Calculated 287 mOsm/kg (285-295); Sodium 139 mmol/L (136-145); Total Bilirubin 0.3 mg/dL (0.15-1.2)
[2023-05-27 13:08] LABS: Anion Gap 8.9 (5-19); Potassium 4.9 mmol/L (3.5-5.1)
== END 2023-06-06 23:59 | disposition home or self-care (01) ==
PROVIDERS: PCP Internal Medicine; Visit Provider Internal Medicine Medical Oncology
DX: Z79.899 Other long term (current) drug therapy; D47.1 Chronic myeloproliferative disease; D75.839 Thrombocytosis, unspecified; Z96.82 Presence of neurostimulator
CPT/HCPCS: 36415; 80053; 85025; 99214

== ENCOUNTER → 2023-08-20 10:22 | Outpatient (BNVA) | payer MEDICARE, SELFPAY | PROVIDERS: PCP Internal Medicine; Visit Provider Nurse Practitioner Family | DX: L57.0 Actinic keratosis (principal); L57.8 Other skin changes due to chronic exposure to nonionizing radiation; L81.4 Other melanin hyperpigmentation; D22.4 Melanocytic nevi of scalp and neck | CPT/HCPCS: 17000; 99213 ==

== ENCOUNTER 2023-08-21 10:05 | Outpatient (CLI) | payer MEDICARE, SELFPAY ==
--- NOTE | 2023-08-21 10:10 | CT_ITS ---
WS: [id number] CT RIGHT SHOULDER ARTHROGRAM TECHNIQUE: CT RIGHT shoulder arthrogram with coronal and sagittal reformatted images. CLINICAL INFORMATION: R BICIPITAL TENDINITIS COMPARISON: None. DLP: 347.[address] scans at [facility] use at least one of these dose optimization techniques: automated e xposure control; mA and/or kV adjustment per patient size (includes targeted exams where dose is matc hed to clinical indication); or iterative reconstruction. FINDINGS: Mild degenerative arthritis AC joint with mild downsloping acromion. Slight narrowing of the subacro mial space. Rotator cuff is intact. Mild chronic thinning of the supraspinatus which appears intact. Normal infraspinatus and teres minor. Subscapularis tendon appears intact distally. Biceps tendon int act within the bicipital groove. Intra-articular biceps tendon appears intact. Biceps labral anchor a ppears intact. Glenoid labrum appears normal. No acute fractures. Mild degenerative narrowing of the glenohumeral articulation. Calcified granuloma RIGHT upper lobe. No other suspicious findings. IMPRESSION: 1. Mild digital arthritis AC joint with mild downsloping acromion. 2. Rotator cuff is intact. 3. Biceps tendon intact within the bicipital groove. Intra-articular biceps tendon appears intact. 4. Normal biceps labral anchor. Glenoid labrum appears normal. 5. No acute fractures. 6. No other suspicious findings.
--- NOTE | 2023-08-21 10:10 | IR_ITS ---
WS: [id number] SHOULDER ARTHROGRAM RIGHT Fluoroscopic guided right shoulder arthrogram CLINICAL INFORMATION: BICIPITAL TENDINITIS COMPARISON: None. PROCEDURE: The procedure including risks, benefits and complications were discussed with the patient, who agreed to proceed. Using sterile technique, the patient was prepped and draped in the usual ster ile fashion. After 1% lidocaine injection using fluoroscopic guidance, a 22-gauge spinal needle was a dvanced into the glenohumeral joint. Approximately 13 ml of a solution containing 10 ml normal saline and 10 ml Omnipaque 240. No immediate complications. FLUOROSCOPY TIME: 1min [id number] # of spot films: 2 IMPRESSION: Uncomplicated fluoroscopic-guided right shoulder arthrogram. CT to follow.
== END 2023-08-21 10:06 | disposition home or self-care (01) ==
LOC: RAD 10:05
PROVIDERS: PCP Internal Medicine; Visit Provider Orthopaedic Surgery
DX: M75.21 Bicipital tendinitis, right shoulder (principal); M75.81 Other shoulder lesions, right shoulder; M75.41 Impingement syndrome of right shoulder; M19.011 Primary osteoarthritis, right shoulder
CPT/HCPCS: 23350; 73201; 77002; Q9966

== ENCOUNTER 2023-08-27 10:46 | Oncology outpatient (recurring) (ONCR) | payer MEDICARE, SELFPAY ==
[2023-08-27 10:55] VITALS: BP 152/81; PULSE 85; RESP 16; TEMP 36.9; O2SAT 98
[2023-08-27 11:00] LABS: Basophils % 0.6 %; Eosinophils # 0.1 10^3/uL (0.0-0.8); Eosinophils % 1.1 %; Hematocrit 39.9 % (37-53); Lymphocytes # 0.9 10^3/uL (0.8-4.8); Lymphocytes % 13.4 %; Mean Corpuscular HGB Conc 31.8 g/dL (30-55); Mean Corpuscular Hemoglobin 29.5 pg (27-33); Mean Corpuscular Volume 92.8 fl (82-101); Mean Platelet Volume 9.7 fL (7.4-10.4); Monocytes # 0.5 10^3/uL (0.2-0.9); Monocytes % 8.3 %; Neutrophils % 75.4 %; Nucleated Red Blood Cells % 0.5 %; Platelet Count 337 10^3/cmm (157-399); Red Cell Distribution Width 19.8 % (12.1-15.1)
[2023-08-27 11:24] LABS: Alanine Aminotransferase 19 U/L (0-41); Albumin Level 4.2 g/dL (3.5-5.2); Alkaline Phosphatase 69 U/L (40-130); Anion Gap 10.7 (5-19); Aspartate Amino Transferase 21 U/L (0-40); Blood Urea Nitrogen 17 mg/dL (6-20); Calcium 9.1 mg/dL (8.5-10.5); Carbon Dioxide 31 mmol/L (22-29); Chloride 102 mmol/L (98-107); Glomerular Filtration Rate 62.9 mL/min (90-130); Glucose 87 mg/dL (65-115); Osmolality Calculated 291 mOsm/kg (285-295); Potassium 3.7 mmol/L (3.5-5.1); Sodium 140 mmol/L (136-145); Total Bilirubin 0.5 mg/dL (0.15-1.2); Total Protein 6.2 g/dL (6.6-8.7)
== END 2023-09-06 23:59 | disposition home or self-care (01) ==
PROVIDERS: PCP Internal Medicine; Visit Provider Internal Medicine Medical Oncology
DX: D47.3 Essential (hemorrhagic) thrombocythemia (principal); Z79.899 Other long term (current) drug therapy; Z53.9 Procedure and treatment not carried out, unspecified reason
CPT/HCPCS: 36415; 80053; 85025; 99214

== ENCOUNTER 2023-11-27 09:29 | Oncology outpatient (recurring) (ONCR) | payer MEDICARE, SELFPAY ==
[2023-11-27 10:12] VITALS: BP 127/74; PULSE 76; RESP 18; TEMP 36.6; O2SAT 98
[2023-11-27 10:16] LABS: Basophils % 0.4 %; Eosinophils % 0.8 %; Hematocrit 46.2 % (37-53); Lymphocytes # 0.6 10^3/uL (0.8-4.8); Lymphocytes % 12.9 %; Mean Corpuscular HGB Conc 32.5 g/dL (30-55); Mean Corpuscular Hemoglobin 32.1 pg (27-33); Mean Corpuscular Volume 98.9 fl (82-101); Mean Platelet Volume 10.4 fL (7.4-10.4); Monocytes # 0.4 10^3/uL (0.2-0.9); Monocytes % 8.6 %; Neutrophils # 3.79 10^3/uL (1.8-7.7); Neutrophils % 76.1 %; Nucleated Red Blood Cells % 0.4 %; Platelet Count 295 10^3/cmm (157-399); Red Blood Count 4.67 10^6/uL (3.85-5.65); Red Cell Distribution Width 17.2 % (12.1-15.1); White Blood Count 4.98 10^3/uL (3.29-11.43)
[2023-11-27 10:47] LABS: Alanine Aminotransferase 16 U/L (0-41); Alkaline Phosphatase 57 U/L (40-130); Aspartate Amino Transferase 13 U/L (0-40); Blood Urea Nitrogen 12 mg/dL (6-20); Calcium 8.3 mg/dL (8.5-10.5); Carbon Dioxide 30 mmol/L (22-29); Chloride 103 mmol/L (98-107); Globulin 1.8 g/dL (1.3-4.6); Glomerular Filtration Rate 69.5 mL/min (90-130); Glucose 76 mg/dL (65-115); Osmolality Calculated 289 mOsm/kg (285-295); Sodium 140 mmol/L (136-145); Total Bilirubin 0.5 mg/dL (0.15-1.2); Total Protein 5.8 g/dL (6.6-8.7)
== END 2023-12-06 23:59 | disposition home or self-care (01) ==
PROVIDERS: PCP Internal Medicine; Visit Provider Nurse Practitioner Family
DX: D47.3 Essential (hemorrhagic) thrombocythemia (principal); Z79.899 Other long term (current) drug therapy
CPT/HCPCS: 36415; 80053; 85025; 99214

== ENCOUNTER 2024-02-25 09:40 | Outpatient (CLI) | payer MEDICARE, SELFPAY | END 2024-02-25 09:41 | disposition home or self-care (01) | LOC: LAB 09:43 | PROVIDERS: PCP Internal Medicine; Visit Provider Nurse Practitioner Family | DX: D75.839 Thrombocytosis, unspecified (principal) | CPT/HCPCS: 99213 ==

== ENCOUNTER 2024-02-25 11:03 | Oncology outpatient (recurring) (ONCR) | payer MEDICARE, SELFPAY ==
[2024-02-25 10:10] LABS: Basophils % 0.4 %; Eosinophils # 0.1 10^3/uL (0.0-0.8); Eosinophils % 1.7 %; Hematocrit 45.2 % (37-53); Lymphocytes # 0.8 10^3/uL (0.8-4.8); Lymphocytes % 18.3 %; Mean Corpuscular HGB Conc 32.5 g/dL (30-55); Mean Corpuscular Volume 101.3 fl (82-101); Mean Platelet Volume 11.2 fL (7.4-10.4); Monocytes # 0.4 10^3/uL (0.2-0.9); Monocytes % 9.2 %; Neutrophils # 3.12 10^3/uL (1.8-7.7); Neutrophils % 68.2 %; Nucleated Red Blood Cells % 0.4 %; Platelet Count 256 10^3/cmm (157-399); Red Blood Count 4.46 10^6/uL (3.85-5.65); Red Cell Distribution Width 16.8 % (12.1-15.1); White Blood Count 4.58 10^3/uL (3.29-11.43)
[2024-02-25 10:29] LABS: Alanine Aminotransferase 19 U/L (0-41); Albumin Level 4.1 g/dL (3.5-5.2); Alkaline Phosphatase 53 U/L (40-130); Anion Gap 8.1 (5-19); Aspartate Amino Transferase 19 U/L (0-40); Blood Urea Nitrogen 16 mg/dL (6-20); Calcium 8.6 mg/dL (8.5-10.5); Carbon Dioxide 30 mmol/L (22-29); Chloride 107 mmol/L (98-107); Globulin 1.8 g/dL (1.3-4.6); Glomerular Filtration Rate 57.1 mL/min (90-130); Glucose 98 mg/dL (65-115); Osmolality Calculated 293 mOsm/kg (285-295); Potassium 4.1 mmol/L (3.5-5.1); Sodium 141 mmol/L (136-145); Total Bilirubin 0.4 mg/dL (0.15-1.2); Total Protein 5.9 g/dL (6.6-8.7)
== END 2024-03-06 23:59 | disposition home or self-care (01) ==
PROVIDERS: PCP Internal Medicine; Visit Provider Nurse Practitioner Family
DX: D75.839 Thrombocytosis, unspecified; Z53.9 Procedure and treatment not carried out, unspecified reason; Z79.899 Other long term (current) drug therapy
CPT/HCPCS: 36415; 80053; 85025; 99213

== ENCOUNTER → 2024-08-15 14:02 | Outpatient (BNVA) | payer MEDICARE, SELFPAY | PROVIDERS: PCP Internal Medicine; Visit Provider Nurse Practitioner Family | DX: L82.1 Other seborrheic keratosis (principal); L23.9 Allergic contact dermatitis, unspecified cause; D22.5 Melanocytic nevi of trunk; L81.4 Other melanin hyperpigmentation; L57.0 Actinic keratosis | CPT/HCPCS: 17000; 99214 ==

== ENCOUNTER 2024-08-19 07:57 | Outpatient (CLI) | payer MEDICARE, SELFPAY ==
--- NOTE | 2024-08-19 08:10 | NM_ITS ---
WS: [id number] NUCLEAR MEDICINE HIDA SCAN WITH GALLBLADDER EJECTION FRACTION HISTORY: RUQ PAIN COMPARISON: Gallbladder ultrasound 06/02/2024 TECHNIQUE: The patient was intravenously injected with 7.4 mCi of TC99m Mebrofenin. Immediate imaging over the right upper quadrant was followed by 5 minute image and additional images for a total of 60 minutes. Normal uptake of radiotracer throughout the liver. Activity identified in the gallbladder at 30 minutes and well distended by 60 minutes. Activity in the proximal small bowel was seen by 20 minutes. Good washout of the radiotracer from the liver by 60 minutes. The patient then drank 8 ounces of Ensure Plus. Ejection fraction at 60 minutes was 65%. Normal GB ej ection fraction is 35-75%. Post fatty meal symptoms: None. NM/NM hepatobiliary w phar* [id number] IMPRESSION: 1. Normal HIDA scan. 2. Normal gallbladder ejection fraction.
== END 2024-08-19 07:58 | disposition home or self-care (01) ==
PROVIDERS: PCP Internal Medicine; Visit Provider Internal Medicine
DX: R10.11 Right upper quadrant pain (principal)
CPT/HCPCS: 78227; A9537

== ENCOUNTER 2024-09-01 10:48 | Oncology outpatient (recurring) (ONCR) | payer MEDICARE, SELFPAY ==
[2024-09-01 11:51] LABS: Basophils % 0.6 %; Eosinophils % 0.4 %; Hematocrit 47.6 % (37-53); Lymphocytes # 0.8 10^3/uL (0.8-4.8); Lymphocytes % 16.3 %; Mean Corpuscular Hemoglobin 34.6 pg (27-33); Mean Corpuscular Volume 104.8 fl (82-101); Monocytes # 0.4 10^3/uL (0.2-0.9); Monocytes % 7.8 %; Neutrophils % 73.5 %; Nucleated Red Blood Cells % 0.4 %; Platelet Count 223 10^3/cmm (157-399); Red Blood Count 4.54 10^6/uL (3.85-5.65)
[2024-09-01 12:04] LABS: Alanine Aminotransferase 13 U/L (0-41); Albumin Level 4.1 g/dL (3.5-5.2); Alkaline Phosphatase 56 U/L (40-130); Anion Gap 12.1 (5-19); Aspartate Amino Transferase 22 U/L (0-40); Blood Urea Nitrogen 12 mg/dL (6-20); Calcium 9.1 mg/dL (8.5-10.5); Carbon Dioxide 31 mmol/L (22-29); Chloride 98 mmol/L (98-107); Globulin 1.6 g/dL (1.3-4.6); Glomerular Filtration Rate 69.2 mL/min (90-130); Glucose 118 mg/dL (65-115); Lactate Dehydrogenase 283 U/L (135-225); Osmolality Calculated 285 mOsm/kg (285-295); Potassium 4.1 mmol/L (3.5-5.1); Sodium 137 mmol/L (136-145); Total Bilirubin 0.6 mg/dL (0.15-1.2); Total Protein 5.7 g/dL (6.6-8.7)
== END 2024-09-06 23:59 | disposition home or self-care (01) ==
PROVIDERS: Internal Medicine; PCP Internal Medicine; Visit Provider Nurse Practitioner Family
DX: D75.839 Thrombocytosis, unspecified (principal)
CPT/HCPCS: 36415; 80053; 83615; 85025; 99214

== ENCOUNTER → 2024-10-17 09:57 | Outpatient (BNVA) | payer MEDICARE, SELFPAY | PROVIDERS: PCP Internal Medicine; Visit Provider Nurse Practitioner Family | DX: L82.1 Other seborrheic keratosis (principal); D22.5 Melanocytic nevi of trunk; L81.4 Other melanin hyperpigmentation; L57.0 Actinic keratosis | CPT/HCPCS: 17000; 99213 ==

== ENCOUNTER 2024-12-01 09:16 | Oncology outpatient (recurring) (ONCR) | payer MEDICARE, SELFPAY ==
[2024-12-01 10:04] LABS: Basophils % 0.7 %; Eosinophils % 0.7 %; Lymphocytes # 0.7 10^3/uL (0.8-4.8); Lymphocytes % 15.9 %; Mean Corpuscular HGB Conc 32.7 g/dL (30-55); Mean Corpuscular Hemoglobin 34.1 pg (27-33); Mean Corpuscular Volume 104.5 fl (82-101); Mean Platelet Volume 10.2 fL (7.4-10.4); Monocytes # 0.5 10^3/uL (0.2-0.9); Monocytes % 10.7 %; Neutrophils # 3.13 10^3/uL (1.8-7.7); Neutrophils % 70.9 %; Nucleated Red Blood Cells % 0 %; Platelet Count 258 10^3/cmm (157-399); Red Blood Count 4.69 10^6/uL (3.85-5.65); Red Cell Distribution Width 15.6 % (12.1-15.1); White Blood Count 4.41 10^3/uL (3.29-11.43)
[2024-12-01 10:16] LABS: Alanine Aminotransferase 17 U/L (0-41); Albumin Level 4.2 g/dL (3.5-5.2); Alkaline Phosphatase 55 U/L (40-130); Anion Gap 11.3 (5-19); Aspartate Amino Transferase 14 U/L (0-40); Blood Urea Nitrogen 17 mg/dL (6-20); Calcium 9.2 mg/dL (8.5-10.5); Carbon Dioxide 33 mmol/L (22-29); Chloride 103 mmol/L (98-107); Globulin 1.7 g/dL (1.3-4.6); Glomerular Filtration Rate 69.2 mL/min (90-130); Glucose 82 mg/dL (65-115); Lactate Dehydrogenase 338 U/L (135-225); Osmolality Calculated 297 mOsm/kg (285-295); Potassium 4.3 mmol/L (3.5-5.1); Sodium 143 mmol/L (136-145); Total Bilirubin 0.8 mg/dL (0.15-1.2); Total Protein 5.9 g/dL (6.6-8.7)
== END 2024-12-05 23:59 | disposition home or self-care (01) ==
PROVIDERS: Nurse Practitioner Family; PCP Internal Medicine; Visit Provider Internal Medicine
DX: D75.839 Thrombocytosis, unspecified (principal); R16.1 Splenomegaly, not elsewhere classified; Z79.899 Other long term (current) drug therapy
CPT/HCPCS: 36415; 80053; 83615; 85025; 99213

== ENCOUNTER 2025-01-11 08:20 | Oncology outpatient (recurring) (ONCR) | payer MEDICARE, SELFPAY ==
--- NOTE | 2025-01-11 08:45 | US_ITS ---
WS: [id number] Complete ABDOMINAL ULTRASOUND HISTORY: splenomegaly COMPARISON: 06/02/2024, CT 07/06/2015, ultrasound 07/06/2017 Liver: 17.5 cm in length. Liver is measuring top normal size. No intrahepatic duct dilatation. Portal Vein: Normal hepatopetal flow with monophasic waveform. Gallbladder: Normally distended gallbladder. No stones identified. There are nonshadowing soft tissue foci within the gallbladder which are probably small polyps. CBD: 0.6 cm Pancreas: Not visualized. Right kidney: 10.5 cm x 5.2 x 5.0 cm. Cortex:1.2 cm. Normal size and echogenicity. No hydronephrosis or mass. Left kidney: 11.4 cm x 4.5 cm x 4.6 cm. Cortex: cm. Normal size and echogenicity. No hydronephrosis or mass. Spleen: 17.0 cm. Spleen is enlarged. No splenic mass identified. Aorta and IVC: Unremarkable abdominal aorta and IVC. US/US abdomen complete* [id number] Impression: 1. Moderate splenomegaly. Spleen measures 17.0 cm. Spleen is increased in size since the prior ultrasound from 2017 by approximately 2 cm. Etiologies to cons ider are infectious and neoplastic disease. 2. No intrahepatic duct dilatation. Liver is top normal size. 3. No cholelithiasis. Small gallbladder polyp. 4. No renal obstruction.
== END 2025-02-04 23:59 | disposition home or self-care (01) ==
LOC: RAD 08:48 → ONCMED 09:34
PROVIDERS: PCP Internal Medicine; Visit Provider Internal Medicine
DX: D47.3 Essential (hemorrhagic) thrombocythemia (principal); Z79.899 Other long term (current) drug therapy; Z53.9 Procedure and treatment not carried out, unspecified reason; R16.1 Splenomegaly, not elsewhere classified
CPT/HCPCS: 76700

== ENCOUNTER → 2025-02-06 10:56 | Outpatient (BNVA) | payer MEDICARE, SELFPAY | PROVIDERS: PCP Internal Medicine; Visit Provider Nurse Practitioner Family | DX: L82.1 Other seborrheic keratosis (principal); D22.5 Melanocytic nevi of trunk; L81.4 Other melanin hyperpigmentation; L57.8 Other skin changes due to chronic exposure to nonionizing radiation; L30.9 Dermatitis, unspecified; L57.0 Actinic keratosis | CPT/HCPCS: 11104; 17000; 99213 ==

== ENCOUNTER 2025-02-15 11:13 | Outpatient (CLI) | payer MEDICARE, SELFPAY ==
[2025-02-15 12:08] LABS: Basophils % 0.7 %; Eosinophils % 0.7 %; Hematocrit 45.9 % (37-53); Lymphocytes # 0.8 10^3/uL (0.8-4.8); Lymphocytes % 18.5 %; Mean Corpuscular HGB Conc 32.7 g/dL (30-55); Mean Corpuscular Hemoglobin 34.2 pg (27-33); Mean Corpuscular Volume 104.8 fl (82-101); Monocytes # 0.5 10^3/uL (0.2-0.9); Monocytes % 11.6 %; Neutrophils # 2.83 10^3/uL (1.8-7.7); Neutrophils % 67.1 %; Nucleated Red Blood Cells % 0.5 %; Platelet Count 268 10^3/cmm (157-399); Red Blood Count 4.38 10^6/uL (3.85-5.65); Red Cell Distribution Width 15.5 % (12.1-15.1); White Blood Count 4.22 10^3/uL (3.29-11.43)
[2025-02-15 12:27] LABS: Ferritin 72 ng/mL (30-400); Iron 69 ug/dL (59-158); Percent Saturation 27.8 % (20-50); Total Iron Binding Capacity 248 mcg/dl; Unsaturated Iron Binding 179 ug/dL (112-347)
[2025-02-15 12:28] LABS: Alanine Aminotransferase 13 U/L (0-41); Albumin Level 4.1 g/dL (3.5-5.2); Alkaline Phosphatase 56 U/L (40-130); Anion Gap 10.3 (5-19); Aspartate Amino Transferase 13 U/L (0-40); Blood Urea Nitrogen 18 mg/dL (6-20); Calcium 8.9 mg/dL (8.5-10.5); Carbon Dioxide 31 mmol/L (22-29); Chloride 103 mmol/L (98-107); Globulin 1.8 g/dL (1.3-4.6); Glomerular Filtration Rate 62.6 mL/min (90-130); Glucose 79 mg/dL (65-115); Lactate Dehydrogenase 346 U/L (135-225); Osmolality Calculated 291 mOsm/kg (285-295); Potassium 4.3 mmol/L (3.5-5.1); Sodium 140 mmol/L (136-145); Total Bilirubin 0.7 mg/dL (0.15-1.2); Total Protein 5.9 g/dL (6.6-8.7)
[2025-02-15 12:38] LABS: Hepatitis C Virus Antibody Non-Reactive (Nonreactive)
[2025-02-15 12:40] LABS: HIV 1 & 2 Antibody Non-Reactive (Non-Reactiv); HIV 1 & 2 Antigen Non-Reactive (Non-Reactiv)
== END 2025-02-15 11:14 | disposition home or self-care (01) ==
PROVIDERS: Internal Medicine; PCP Internal Medicine; Visit Provider Nurse Practitioner Family
DX: D75.839 Thrombocytosis, unspecified (principal); D22.5 Melanocytic nevi of trunk; L81.4 Other melanin hyperpigmentation; L57.8 Other skin changes due to chronic exposure to nonionizing radiation; E80.1 Porphyria cutanea tarda
CPT/HCPCS: 36415; 80053; 82542; 82728; 83540; 83550; 83615; 85025; 86803; 87806

== ENCOUNTER 2025-03-02 12:38 | Oncology outpatient (recurring) (ONCR) | payer MEDICARE, SELFPAY ==
[2025-03-02 13:09] LABS: Basophils % 0.6 %; Eosinophils # 0.1 10^3/uL (0.0-0.8); Eosinophils % 1.4 %; Hematocrit 45.1 % (37-53); Lymphocytes # 0.6 10^3/uL (0.8-4.8); Lymphocytes % 17.4 %; Mean Platelet Volume 11.3 fL (7.4-10.4); Monocytes # 0.3 10^3/uL (0.2-0.9); Monocytes % 8.6 %; Neutrophils # 2.56 10^3/uL (1.8-7.7); Neutrophils % 70.6 %; Nucleated Red Blood Cells % 1.1 %; Platelet Count 235 10^3/cmm (157-399); Red Blood Count 4.38 10^6/uL (3.85-5.65); Red Cell Distribution Width 15.6 % (12.1-15.1); White Blood Count 3.62 10^3/uL (3.29-11.43)
[2025-03-02 13:26] LABS: Alanine Aminotransferase 16 U/L (0-41); Albumin Level 3.9 g/dL (3.5-5.2); Alkaline Phosphatase 55 U/L (40-130); Anion Gap 12.8 (5-19); Aspartate Amino Transferase 22 U/L (0-40); Blood Urea Nitrogen 13 mg/dL (6-20); Calcium 8.8 mg/dL (8.5-10.5); Carbon Dioxide 30 mmol/L (22-29); Chloride 101 mmol/L (98-107); Glomerular Filtration Rate 62.4 mL/min (90-130); Glucose 112 mg/dL (65-115); Lactate Dehydrogenase 313 U/L (135-225); Osmolality Calculated 291 mOsm/kg (285-295); Potassium 3.8 mmol/L (3.5-5.1); Sodium 140 mmol/L (136-145); Total Bilirubin 0.6 mg/dL (0.15-1.2); Total Protein 5.9 g/dL (6.6-8.7)
== END 2025-03-06 23:59 | disposition home or self-care (01) ==
PROVIDERS: PCP Internal Medicine; Visit Provider Nurse Practitioner Family
DX: Z79.899 Other long term (current) drug therapy (principal); R16.1 Splenomegaly, not elsewhere classified; D47.3 Essential (hemorrhagic) thrombocythemia; R53.83 Other fatigue; K82.4 Cholesterolosis of gallbladder; R06.02 Shortness of breath; R11.0 Nausea; K59.00 Constipation, unspecified; R10.12 Left upper quadrant pain
CPT/HCPCS: 36415; 80053; 83615; 85025; 99214

== ENCOUNTER → 2025-04-19 09:34 | Outpatient (BNVA) | payer MEDICARE, SELFPAY | PROVIDERS: PCP Internal Medicine; Visit Provider Dermatology | DX: L98.8 Other specified disorders of the skin and subcutaneous tissue (principal); L57.0 Actinic keratosis | CPT/HCPCS: 17000; 99214 ==

== ENCOUNTER 2025-06-01 13:03 | Oncology outpatient (recurring) (ONCR) | payer MEDICARE, SELFPAY ==
[2025-06-01 13:30] LABS: Hematocrit 47.2 % (37-53); Hemoglobin 15.40 g/dL (11.27-16.99); Mean Corpuscular HGB Conc 32.6 g/dL (30-55); Mean Corpuscular Hemoglobin 32.4 pg (27-33); Mean Corpuscular Volume 99.2 fl (82-101); Nucleated Red Blood Cells % 0.3 %; Platelet Count 431 10^3/cmm (157-399); Red Blood Count 4.76 10^6/uL (3.85-5.65); White Blood Count 10.64 10^3/uL (3.29-11.43)
[2025-06-01 13:56] LABS: Alanine Aminotransferase 13 U/L (0-41); Albumin Level 4.3 g/dL (3.5-5.2); Alkaline Phosphatase 62 U/L (40-130); Anion Gap 13.5 (5-19); Aspartate Amino Transferase 13 U/L (0-40); Blood Urea Nitrogen 17 mg/dL (6-20); Calcium 9.0 mg/dL (8.5-10.5); Carbon Dioxide 27 mmol/L (22-29); Chloride 102 mmol/L (98-107); Creatinine Clr Calc Pharmacy 98.4708; Globulin 1.9 g/dL (1.3-4.6); Glucose 162 mg/dL (65-115); Osmolality Calculated 291 mOsm/kg (285-295); Potassium 4.5 mmol/L (3.5-5.1); Sodium 138 mmol/L (136-145); Total Protein 6.2 g/dL (6.6-8.7)
[2025-06-01 14:08] LABS: Slide Review Slide Review Perform
== END 2025-06-06 23:59 | disposition home or self-care (01) ==
PROVIDERS: Internal Medicine; PCP Internal Medicine; Visit Provider Nurse Practitioner Family
DX: D75.839 Thrombocytosis, unspecified (principal); R16.1 Splenomegaly, not elsewhere classified; Z79.899 Other long term (current) drug therapy
CPT/HCPCS: 36415; 80053; 83615; 85025; 99214

== ENCOUNTER → 2025-07-17 09:20 | Outpatient (BNVA) | payer MEDICARE, SELFPAY | PROVIDERS: PCP Internal Medicine; Visit Provider Dermatology | DX: L98.8 Other specified disorders of the skin and subcutaneous tissue (principal); L50.8 Other urticaria; L57.8 Other skin changes due to chronic exposure to nonionizing radiation; D48.5 Neoplasm of uncertain behavior of skin; L57.0 Actinic keratosis | CPT/HCPCS: 11102; 17000; 99214 ==

== ENCOUNTER 2025-08-24 11:07 | Oncology outpatient (recurring) (ONCR) | payer MEDICARE, SELFPAY ==
[2025-08-24 12:08] LABS: Hematocrit 45.1 % (37-53); Hemoglobin 14.80 g/dL (11.27-16.99); Mean Corpuscular HGB Conc 32.8 g/dL (30-55); Mean Corpuscular Hemoglobin 31.6 pg (27-33); Mean Corpuscular Volume 96.4 fl (82-101); Nucleated Red Blood Cells % 0.5 %; Platelet Count 243 10^3/cmm (157-399); Red Blood Count 4.68 10^6/uL (3.85-5.65); White Blood Count 5.92 10^3/uL (3.29-11.43)
[2025-08-24 12:28] LABS: Alanine Aminotransferase 31 U/L (0-41); Albumin Level 4.3 g/dL (3.5-5.2); Alkaline Phosphatase 65 U/L (40-130); Anion Gap 11.6 (5-19); Aspartate Amino Transferase 20 U/L (0-40); Blood Urea Nitrogen 17 mg/dL (6-20); Calcium 9.2 mg/dL (8.5-10.5); Carbon Dioxide 30 mmol/L (22-29); Chloride 104 mmol/L (98-107); Globulin 1.6 g/dL (1.3-4.6); Glucose 86 mg/dL (65-115); Osmolality Calculated 293 mOsm/kg (285-295); Potassium 4.6 mmol/L (3.5-5.1); Sodium 141 mmol/L (136-145); Total Protein 5.9 g/dL (6.6-8.7)
== END 2025-09-06 23:59 | disposition home or self-care (01) ==
PROVIDERS: Internal Medicine; PCP Internal Medicine; Visit Provider Nurse Practitioner Family
DX: D47.3 Essential (hemorrhagic) thrombocythemia (principal); Z79.899 Other long term (current) drug therapy
CPT/HCPCS: 36415; 80053; 85025; 99213